=== PATIENT | female | born 1945 | race Caucasian/White ===

== ENCOUNTER 2016-11-19 23:43 | Emergency (ER) | payer OTHER ==
[~2016-11-19] VITALS: Ht 152.4 cm; Wt 77.1 kg
[~2016-11-19 23:43] MED LIST: ALL100T PO; GABA-497 PO; LOSA100T27 PO; OXYB5TAB62 PO; TRAM50TA2 PO
[2016-11-20 00:25] LABS: Basophils # (auto) 0 uL; Basophils % (auto) 0.8 % (0.0-2.0); Eosinophils # (auto) 0.2 uL; Eosinophils % (auto) 4.6 % (0.0-7.0); Hematocrit 34.3 % (36.0-46.0); Hemoglobin 11.7 g/dL (12.2-16.2); Lymphocytes % (auto) 40.5 % (10.0-50.0); Mean Corpuscular Hemoglobin 32.3 pg (28.0-32.0); Mean Corpuscular Volume 94.9 fL (80.0-100.0); Mean Platelet Volume 6.9 fL (7.4-10.4); Monocytes # (auto) 0.4 uL; Monocytes % (auto) 8.2 % (0.0-12.0); Neutrophils # (auto) 2.4 uL; Neutrophils % (auto) 45.9 % (37.0-80.0); Platelet Count (auto) 320 10^3/uL (140-450); Red Cell Distribution Width 16.3 % (11.6-16.0)
[2016-11-20 00:45] LABS: Albumin 3.8 g/dL (3.4-5.0); Calcium 8.7 mg/dL (8.5-10.1); Magnesium 2.5 mg/dL (1.6-2.6); Potassium 4.8 mmol/L (3.5-5.1)
[2016-11-20 00:50] LABS: Bilirubin, Total 0.2 mg/dL (0.2-1.0); Total Protein 7.5 g/dL (6.4-8.2)
[2016-11-20 04:30] VITALS: BP 132/76
[2016-11-20 06:11] LABS: Urine Bilirubin Negative (Negative); Urine Blood Negative /uL (Negative); Urine Color Yellow (Yellow); Urine Glucose Normal (Normal); Urine Ketone Negative (Negative); Urine Nitrite Negative (Negative); Urine RBC 2 /hpf (0 - 4); Urine Squamous Epithelial Cell FEW /hpf (<5); Urine Urobilinogen Normal (Negative)
== END 2016-11-20 03:37 | disposition home or self-care (01) ==
LOC: EDBD 23:43 → ER 23:49
DX: S52.501A Unspecified fracture of the lower end of right radius, initial encounter for closed fracture (principal); I12.9 Hypertensive chronic kidney disease with stage 1 through stage 4 chronic kidney disease, or unspecified chronic kidney disease; N18.9 Chronic kidney disease, unspecified; M10.9 Gout, unspecified; E78.5 Hyperlipidemia, unspecified; Z90.710 Acquired absence of both cervix and uterus; Z88.0 Allergy status to penicillin; Z88.2 Allergy status to sulfonamides; W19.XXXA Unspecified fall, initial encounter; Y93.89 Activity, other specified; Y99.8 Other external cause status; Y92.89 Other specified places as the place of occurrence of the external cause
CPT/HCPCS: 29125; 36415; 73130; 80053; 81001; 83735; 84484; 85025; 93005

== ENCOUNTER 2017-12-20 06:39 | Inpatient (IN) | payer OTHER ==
[~2017-12-20] VITALS: Ht 157.5 cm; Wt 83.2 kg
[~2017-12-20 06:39] MED LIST changes: -GABA-497 PO; +GABA300C10 PO; +LEVO500T21 PO; +LOSA-49 PO; -LOSA100T27 PO; +OXYB5TAB24 PO; -OXYB5TAB62 PO
[2017-12-20] MEDS ORDERED: SODIUM CHLORIDE 0.9% 500 ML IVB ONE (07:04)
[2017-12-20] MEDS ORDERED: PANTOPRAZOLE 40 MG/10 ML VIAL IV STA (07:04)
[2017-12-20] MEDS ORDERED: ONDANSETRON HCL 4 MG/2 ML VIAL IV ONE (07:15)
[2017-12-20] MEDS ORDERED: MORPHINE SULFATE 4 MG/ML SYR/VIAL IV ONE (07:15)
[2017-12-20 07:34] LABS: Basophils # (auto) 0 uL; Basophils % (auto) 0.4 % (0.0-2.0); Eosinophils # (auto) 0 uL; Hematocrit 36.9 % (36.0-46.0); Hemoglobin 12.3 g/dL (12.2-16.2); Lymphocytes # (auto) 0.6 uL; Lymphocytes % (auto) 9.8 % (10.0-50.0); Mean Corpuscular Hemoglobin 31.4 pg (28.0-32.0); Mean Corpuscular Hgb Conc. 33.4 g/dL (32.0-36.0); Mean Corpuscular Volume 94.1 fL (80.0-100.0); Monocytes # (auto) 0.3 uL; Monocytes % (auto) 4.3 % (0.0-12.0); Neutrophils # (auto) 5.6 uL; Neutrophils % (auto) 85.5 % (37.0-80.0); Platelet Count (auto) 271 10^3/uL (140-450); Red Blood Cells 3.92 10^6/uL (4.0-5.20); Red Cell Distribution Width 16.2 % (11.8-14.3); White Blood Cell 6.6 10^3/uL (4.4-10.8)
[2017-12-20 07:57] LABS: Albumin 4.1 g/dL (3.4-5.0); BUN/Creatinine Ratio 24.1; Calcium 9.5 mg/dL (8.5-10.1); Potassium 4.2 mmol/L (3.5-5.1); Total Protein 7.7 g/dL (6.4-8.2)
[2017-12-20] MEDS ORDERED: HYDROmorphone HCL 2 MG/ML VL IV ONE (08:45)
[2017-12-20] MEDS ORDERED: IOHEXOL 300 MG/ML 100ML BOTTLE IJ ONE (08:54)
[2017-12-20] MEDS ORDERED: GASTROGRAFIN 30 ML SOL ONE (09:01)
[2017-12-20] MEDS ORDERED: NITROGLYCERIN 0.4 MG SL TAB SL PRN (10:00)
[2017-12-20] MEDS ORDERED: MORPHINE SULFATE 4 MG/ML SYR/VIAL IV PRN (10:00)
[2017-12-20] MEDS ORDERED: PANTOPRAZOLE 40 MG/10 ML VIAL IV ONE (10:00)
[2017-12-20] MEDS: PANTOPRAZOLE 40 MG/10 ML VIAL IV SCH (10:00)
[2017-12-20] MEDS ORDERED: LEVOFLOXACIN 500MG 100 ML IV ONE (10:00)
[2017-12-20] MEDS ORDERED: DEXTROSE (50%) 50ML SYRG IV PRN (10:00)
[2017-12-20] MEDS ORDERED: LEVOFLOXACIN 500MG 100 ML IV SCH (10:00)
[2017-12-20 10:51] LABS: Urine Bacteria FEW /hpf (None Seen); Urine Blood Negative /uL (Negative); Urine WBC 3 /hpf (0 - 5)
[2017-12-20] MEDS: SODIUM CHLORIDE 0.9% 1,000 ML IV SCH ×3 (11:08→23:36)
[2017-12-20] MEDS: ACCU-CHEK COMFORT CURVE STRIP VI SCH ×3 (12:48→20:00)
[2017-12-20] MEDS: InsuLIN REG 1unit/0.01ml Soln (100units/ml) SC SCH ×3 (12:50→20:00)
[2017-12-20] MEDS: metroNIDAZOLE 500MG/100ML 100 ML IV SCH ×2 (13:48→21:55)
[2017-12-20] MEDS: ONDANSETRON HCL 4 MG/2 ML VIAL IV PRN (13:49)
[2017-12-20] MEDS: MORPHINE SULFATE 4 MG/ML SYR/VIAL IV PRN ×2 (13:51→16:51)
[2017-12-20 14:17] LABS: Hematocrit 36.2 % (36.0-46.0); Hemoglobin 12.2 g/dL (12.2-16.2)
[2017-12-20] MEDS ORDERED: CLON0.2T (16:26)
[2017-12-20] MEDS ORDERED: SERT-275 (16:26)
[2017-12-20 16:30] LABS: INR 0.96 (0.9-1.15); Partial Thromboplastin Time 23.1 sec (23.78-33.04); Prothrombin Time 10.3 sec (9.27-12.13)
[2017-12-20 21:23] LABS: Hematocrit 35.1 % (36.0-46.0); Hemoglobin 11.6 g/dL (12.2-16.2)
[2017-12-21 00:10] VITALS: BP 156/77
[2017-12-21 00:30] VITALS: BP 156/77
[2017-12-21] MEDS: ACCU-CHEK COMFORT CURVE STRIP VI SCH ×6 (00:49→19:51)
[2017-12-21] MEDS: InsuLIN REG 1unit/0.01ml Soln (100units/ml) SC SCH ×6 (00:49→19:51)
[2017-12-21] MEDS: LORazepam 2MG/ML-1ML VIAL IV PRN ×2 (00:51→16:55)
[2017-12-21] MEDS: MORPHINE SULFATE 4 MG/ML SYR/VIAL IV PRN ×5 (00:56→22:32)
[2017-12-21] MEDS ORDERED: TRAM50TA2 PO (01:31)
[2017-12-21] MEDS ORDERED: GABA300C10 PO (01:31)
[2017-12-21] MEDS ORDERED: DIPH25CA66 PO (01:31)
[2017-12-21 04:30] VITALS: BP 131/73
[2017-12-21] MEDS: SODIUM CHLORIDE 0.9% 1,000 ML IV SCH ×3 (05:00→19:28)
[2017-12-21 05:19] LABS: Basophils # (auto) 0 uL; Basophils % (auto) 0.1 % (0.0-2.0); Eosinophils # (auto) 0 uL; Eosinophils % (auto) 0.1 % (0.0-7.0); Hematocrit 33.5 % (36.0-46.0); Hemoglobin 11.2 g/dL (12.2-16.2); Lymphocytes # (auto) 0.8 uL; Lymphocytes % (auto) 10.7 % (10.0-50.0); Mean Corpuscular Hemoglobin 32.3 pg (28.0-32.0); Mean Corpuscular Hgb Conc. 33.5 g/dL (32.0-36.0); Mean Corpuscular Volume 96.4 fL (80.0-100.0); Monocytes # (auto) 0.6 uL; Neutrophils # (auto) 5.8 uL; Neutrophils % (auto) 81.1 % (37.0-80.0); Nucleated Red Blood Cells % 0.1 %; Platelet Count (auto) 155 10^3/uL (140-450); Red Blood Cells 3.47 10^6/uL (4.0-5.20); Red Cell Distribution Width 16.9 % (11.8-14.3); White Blood Cell 7.2 10^3/uL (4.4-10.8)
[2017-12-21 05:33] LABS: INR 1.01 (0.9-1.15); Partial Thromboplastin Time 24.5 sec (23.78-33.04); Prothrombin Time 10.8 sec (9.27-12.13)
[2017-12-21 05:44] LABS: Albumin 3.2 g/dL (3.4-5.0); BUN/Creatinine Ratio 21.1; Bilirubin, Total 1.2 mg/dL (0.2-1.0); Potassium 5.1 mmol/L (3.5-5.1); Total Protein 6.1 g/dL (6.4-8.2)
[2017-12-21] MEDS: metroNIDAZOLE 500MG/100ML 100 ML IV SCH ×3 (06:49→21:48)
[2017-12-21] MEDS: LEVOFLOXACIN 250MG 50 ML IV SCH (10:32)
[2017-12-21] MEDS: PANTOPRAZOLE 40 MG/10 ML VIAL IV SCH (10:32)
[2017-12-21] MEDS ORDERED: FUROSEMIDE 40 MG/4 ML VIAL IV ONE (11:30)
[2017-12-21 12:00] VITALS: BP 142/78
[2017-12-21 15:51] VITALS: BP 138/63
[2017-12-21] MEDS ORDERED: ACETAMINOPHEN 325 MG TAB PO PRN (16:30)
[2017-12-21 19:49] VITALS: BP 142/88
[2017-12-22] VITALS: BP 135/66
[2017-12-22] MEDS: ACCU-CHEK COMFORT CURVE STRIP VI SCH ×5 (00:17→18:05)
[2017-12-22] MEDS: SODIUM CHLORIDE 0.9% 1,000 ML IV SCH ×2 (02:53→08:34)
[2017-12-22] MEDS: MORPHINE SULFATE 4 MG/ML SYR/VIAL IV PRN ×6 (02:53→21:00)
[2017-12-22 04:00] VITALS: BP 155/100
[2017-12-22] MEDS: InsuLIN REG 1unit/0.01ml Soln (100units/ml) SC SCH ×5 (04:00→18:00)
[2017-12-22] MEDS: metroNIDAZOLE 500MG/100ML 100 ML IV SCH ×3 (05:36→21:35)
[2017-12-22 08:00] VITALS: BP 167/73
[2017-12-22] MEDS: LORazepam 2MG/ML-1ML VIAL IV PRN ×2 (09:28→21:59)
[2017-12-22] MEDS: PANTOPRAZOLE 40 MG/10 ML VIAL IV SCH (09:29)
[2017-12-22] MEDS: LEVOFLOXACIN 250MG 50 ML IV SCH (09:29)
[2017-12-22 10:17] LABS: Basophils # (auto) 0 uL; Basophils % (auto) 0.4 % (0.0-2.0); Eosinophils # (auto) 0 uL; Hematocrit 38.3 % (36.0-46.0); Hemoglobin 12.4 g/dL (12.2-16.2); Mean Corpuscular Hgb Conc. 32.2 g/dL (32.0-36.0); Mean Corpuscular Volume 96.1 fL (80.0-100.0); Monocytes # (auto) 0.9 uL; Monocytes % (auto) 10.2 % (0.0-12.0); Neutrophils # (auto) 7.3 uL; Neutrophils % (auto) 78.4 % (37.0-80.0); Nucleated Red Blood Cells % 0.2 %; Red Blood Cells 3.99 10^6/uL (4.0-5.20); Red Cell Distribution Width 17.8 % (11.8-14.3); White Blood Cell 9.3 10^3/uL (4.4-10.8)
[2017-12-22 10:24] LABS: Alanine Aminotransferase 17 U/L (13-56); Albumin 2.9 g/dL (3.4-5.0); Anion Gap 16 (5-15); Aspartate Aminotransferase 60 U/L (15-37); BUN/Creatinine Ratio 19.1; Blood Urea Nitrogen 70 mg/dL (7-18); Calcium 6.6 mg/dL (8.5-10.1); Carbon Dioxide 16 mmol/L (21-32); Chloride 111 mmol/L (98-107); GFR African American 16 mL/min; GFR Non-African American 13 mL/min; Glucose 106 mg/dL (74-106); Potassium 4.7 mmol/L (3.5-5.1); Sodium 143 mmol/L (136-145)
[2017-12-22 10:26] LABS: Alkaline Phosphatase 101 U/L (45-117); Bilirubin, Total 1.3 mg/dL (0.2-1.0); Total Protein 6.1 g/dL (6.4-8.2)
[2017-12-22] MEDS ORDERED: DIAZEPAM 5 MG/ML 2ML SYRG IV ONE (11:00)
[2017-12-22] MEDS ORDERED: LORazepam 2MG/ML-1ML VIAL IV PRN (11:00)
[2017-12-22] MEDS ORDERED: CALCIUM CHL 100MG/ML 1,000 MG in D5W 5% 100 ML IV ONE (11:15)
[2017-12-22 11:19] LABS: Platelet Count (auto) 76 10^3/uL (140-450)
[2017-12-22] MEDS ORDERED: LORazepam 2MG/ML-1ML VIAL IV ONE (12:00)
[2017-12-22 12:08] VITALS: BP 103/69
[2017-12-22 13:08] LABS: Magnesium 1.5 mg/dL (1.6-2.6)
[2017-12-22] MEDS: SODIUM BICARBONATE 50ML VIAL 75 ML in SOD CHL 0.45% 1,000 ML IV SCH (15:58)
[2017-12-22 16:00] VITALS: BP 150/109
[2017-12-22 17:01] LABS: Calcium 7.4 mg/dL (8.5-10.1)
[2017-12-22 17:05] LABS: BUN/Creatinine Ratio 19.9; Potassium 4.4 mmol/L (3.5-5.1)
[2017-12-22 20:00] VITALS: BP 160/83
[2017-12-22] MEDS: hydrALAZINE HCL 20 MG/ML VL IV PRN (20:07)
[2017-12-22] MEDS: METOPROLOL TARTRATE 1MG/1ML-5ML VIAL IV PRN (21:56)
[2017-12-23] VITALS: BP 135/69
[2017-12-23] MEDS: MORPHINE SULFATE 4 MG/ML SYR/VIAL IV PRN ×4 (03:10→22:08)
[2017-12-23 03:59] VITALS: BP 109/54
[2017-12-23] MEDS: ACCU-CHEK COMFORT CURVE STRIP VI SCH ×4 (05:21→18:07)
[2017-12-23] MEDS: SODIUM BICARBONATE 50ML VIAL 75 ML in SOD CHL 0.45% 1,000 ML IV SCH ×3 (05:21→17:51)
[2017-12-23] MEDS: metroNIDAZOLE 500MG/100ML 100 ML IV SCH ×3 (05:21→21:56)
[2017-12-23] MEDS: InsuLIN REG 1unit/0.01ml Soln (100units/ml) SC SCH ×4 (05:23→18:00)
[2017-12-23 05:28] LABS: Basophils # (auto) 0 uL; Basophils % (auto) 0.3 % (0.0-2.0); Eosinophils # (auto) 0 uL; Eosinophils % (auto) 0.1 % (0.0-7.0); Hematocrit 27.4 % (36.0-46.0); Hemoglobin 9.5 g/dL (12.2-16.2); Lymphocytes # (auto) 0.6 uL; Lymphocytes % (auto) 9.3 % (10.0-50.0); Mean Corpuscular Hemoglobin 32.9 pg (28.0-32.0); Mean Corpuscular Hgb Conc. 34.7 g/dL (32.0-36.0); Mean Corpuscular Volume 94.6 fL (80.0-100.0); Monocytes # (auto) 0.8 uL; Monocytes % (auto) 11.4 % (0.0-12.0); Neutrophils # (auto) 5.3 uL; Neutrophils % (auto) 78.9 % (37.0-80.0); Platelet Count (auto) 90 10^3/uL (140-450); Red Cell Distribution Width 18.5 % (11.8-14.3); White Blood Cell 6.7 10^3/uL (4.4-10.8)
[2017-12-23 05:55] LABS: Albumin 2.4 g/dL (3.4-5.0); BUN/Creatinine Ratio 23.2; Bilirubin, Total 0.8 mg/dL (0.2-1.0); Calcium 6.9 mg/dL (8.5-10.1); Magnesium 1.5 mg/dL (1.6-2.6); Phosphorus 3.3 mg/dL (2.5-4.90); Total Protein 5.1 g/dL (6.4-8.2)
[2017-12-23 08:30] VITALS: BP 120/64
[2017-12-23 09:01] VITALS: BP 120/64
[2017-12-23] MEDS ORDERED: MAGNESIUM SULFATE 1GM/100ML 100 ML IV ONE (09:23)
[2017-12-23] MEDS: PANTOPRAZOLE 40 MG/10 ML VIAL IV SCH (09:40)
[2017-12-23] MEDS: MAGNESIUM SULFATE 1GM/100ML 100 ML IV SCH ×2 (09:43→12:02)
[2017-12-23 11:45] VITALS: BP 153/68
[2017-12-23] MEDS: LORazepam 2MG/ML-1ML VIAL IV PRN (12:00)
[2017-12-23] MEDS: HEPARIN SODIUM (PORCINE) 5000 UNITS/ML 1ML VIAL SC SCH ×2 (13:37→21:56)
[2017-12-23] MEDS ORDERED: LIDOCAINE 1% (LOCAL ANESTH.) PF 5ml SDV ONE (16:16)
[2017-12-23] MEDS ORDERED: SERTRALINE HCL 50 MG TAB PO ONE (16:45)
[2017-12-23 18:58] LABS: Creatinine, Urine 94 mg/dL (30.0-125.0); Sodium Urine 25 mmol/L (40-220)
[2017-12-23 20:00] VITALS: BP 152/101
[2017-12-23] MEDS: SERTRALINE HCL 50 MG TAB PO SCH (21:55)
[2017-12-24] VITALS (7 sets, daily range): BP systolic 117–160; BP diastolic 66–99
[2017-12-24] MEDS: ACCU-CHEK COMFORT CURVE STRIP VI SCH ×5 (00:27→23:33)
[2017-12-24] MEDS: SODIUM BICARBONATE 50ML VIAL 75 ML in SOD CHL 0.45% 1,000 ML IV SCH ×3 (02:19→19:39)
[2017-12-24] MEDS: MORPHINE SULFATE 4 MG/ML SYR/VIAL IV PRN ×3 (02:23→20:03)
[2017-12-24] MEDS: METOPROLOL TARTRATE 1MG/1ML-5ML VIAL IV PRN ×3 (03:30→20:28)
[2017-12-24 05:05] LABS: Basophils # (auto) 0 uL; Basophils % (auto) 0.3 % (0.0-2.0); Eosinophils # (auto) 0 uL; Eosinophils % (auto) 0.5 % (0.0-7.0); Hemoglobin 9.5 g/dL (12.2-16.2); Lymphocytes % (auto) 12.5 % (10.0-50.0); Mean Corpuscular Hemoglobin 31.6 pg (28.0-32.0); Mean Corpuscular Volume 93.1 fL (80.0-100.0); Monocytes # (auto) 1.1 uL; Monocytes % (auto) 14.2 % (0.0-12.0); Neutrophils # (auto) 5.6 uL; Neutrophils % (auto) 72.5 % (37.0-80.0); Nucleated Red Blood Cells % 0.2 %; Platelet Count (auto) 123 10^3/uL (140-450); Red Cell Distribution Width 18.2 % (11.8-14.3); White Blood Cell 7.8 10^3/uL (4.4-10.8)
[2017-12-24 05:28] LABS: Albumin 2.4 g/dL (3.4-5.0); BUN/Creatinine Ratio 27.4; Bilirubin, Total 0.6 mg/dL (0.2-1.0); Calcium 7.2 mg/dL (8.5-10.1); Magnesium 2.1 mg/dL (1.6-2.6); Phosphorus 3.1 mg/dL (2.5-4.90); Potassium 3.4 mmol/L (3.5-5.1); Total Protein 5.3 g/dL (6.4-8.2)
[2017-12-24] MEDS: metroNIDAZOLE 500MG/100ML 100 ML IV SCH ×3 (05:44→22:20)
[2017-12-24] MEDS: LORazepam 2MG/ML-1ML VIAL IV PRN ×2 (05:44→15:25)
[2017-12-24] MEDS: HEPARIN SODIUM (PORCINE) 5000 UNITS/ML 1ML VIAL SC SCH ×3 (05:49→22:17)
[2017-12-24] MEDS: InsuLIN REG 1unit/0.01ml Soln (100units/ml) SC SCH ×5 (06:00→23:33)
[2017-12-24] MEDS: hydrALAZINE HCL 20 MG/ML VL IV PRN (08:43)
[2017-12-24] MEDS: SERTRALINE HCL 50 MG TAB PO SCH ×2 (10:00→22:20)
[2017-12-24] MEDS: PANTOPRAZOLE 40 MG/10 ML VIAL IV SCH (10:00)
[2017-12-24] MEDS ORDERED: LEVOFLOXACIN 250MG 50 ML IV SCH (10:00)
[2017-12-24] MEDS: POTASSIUM CHL 20MEQ/100ML 100 ML IV SCH ×2 (11:15→14:53)
[2017-12-24] MEDS ORDERED: ALPRAZolam 0.5 MG TAB PO PRN (14:00)
[2017-12-24] MEDS: ONDANSETRON HCL 4 MG/2 ML VIAL IV PRN (15:25)
[2017-12-24] MEDS ORDERED: SODIUM CHLORIDE 0.9% 1,000 ML IV ONE (20:30)
[2017-12-24] MEDS ORDERED: METOPROLOL TARTRATE 1MG/1ML-5ML VIAL IV ONE (23:00)
[2017-12-25] MEDS: MORPHINE SULFATE 4 MG/ML SYR/VIAL IV PRN ×4 (02:30→22:02)
[2017-12-25] MEDS: METOPROLOL TARTRATE 1MG/1ML-5ML VIAL IV PRN (02:30)
[2017-12-25] MEDS: LORazepam 2MG/ML-1ML VIAL IV PRN (03:10)
[2017-12-25] MEDS: hydrALAZINE HCL 20 MG/ML VL IV PRN (03:18)
[2017-12-25] MEDS: SODIUM BICARBONATE 50ML VIAL 75 ML in SOD CHL 0.45% 1,000 ML IV SCH ×3 (04:15→21:59)
[2017-12-25 04:26] VITALS: BP 160/104
[2017-12-25] MEDS: HEPARIN SODIUM (PORCINE) 5000 UNITS/ML 1ML VIAL SC SCH ×3 (05:47→22:01)
[2017-12-25] MEDS: metroNIDAZOLE 500MG/100ML 100 ML IV SCH ×3 (05:47→22:00)
[2017-12-25] MEDS: InsuLIN REG 1unit/0.01ml Soln (100units/ml) SC SCH ×3 (06:00→17:50)
[2017-12-25] MEDS: ACCU-CHEK COMFORT CURVE STRIP VI SCH ×3 (06:02→17:50)
[2017-12-25] MEDS ORDERED: METOPROLOL TARTRATE 1MG/1ML-5ML VIAL IV ONE ×2 (06:23→06:30)
[2017-12-25] MEDS ORDERED: SODIUM CHLORIDE 0.9% 1,000 ML IV ONE (06:30)
[2017-12-25 08:56] VITALS: BP 104/47
[2017-12-25] MEDS: DIGOXIN (250MCG/ML) 2 ML AMPULE IV SCH ×2 (10:07→18:34)
[2017-12-25] MEDS: METOPROLOL TARTRATE 1MG/1ML-5ML VIAL IV SCH ×4 (10:10→22:01)
[2017-12-25 10:12] LABS: Phosphorus 3.1 mg/dL (2.5-4.90)
[2017-12-25] MEDS: SERTRALINE HCL 50 MG TAB PO SCH ×2 (10:14→22:01)
[2017-12-25] MEDS: PANTOPRAZOLE 40 MG/10 ML VIAL IV SCH (10:14)
[2017-12-25 10:18] LABS: Albumin 2.3 g/dL (3.4-5.0); BUN/Creatinine Ratio 33.8; Bilirubin, Total 0.6 mg/dL (0.2-1.0); Calcium 7.3 mg/dL (8.5-10.1); Potassium 3.6 mmol/L (3.5-5.1); Total Protein 5.3 g/dL (6.4-8.2)
[2017-12-25 13:00] VITALS: BP 136/79
[2017-12-25 13:27] LABS: Amylase 143 U/L (25-115); Lipase 637 U/L (73-393)
[2017-12-25 17:00] VITALS: BP 138/77
[2017-12-25] MEDS ORDERED: DIGOXIN (250MCG/ML) 2 ML AMPULE ONE (18:21)
[2017-12-25] MEDS ORDERED: HEPARIN SODIUM (PORCINE) 5000 UNITS/ML 1ML VIAL ONE (21:53)
[2017-12-25 22:32] VITALS: BP 114/62
[2017-12-26] MEDS: METOPROLOL TARTRATE 1MG/1ML-5ML VIAL IV SCH ×6 (02:00→21:45)
[2017-12-26] MEDS: MORPHINE SULFATE 4 MG/ML SYR/VIAL IV PRN ×3 (02:00→17:39)
[2017-12-26 05:22] VITALS: BP 165/89
[2017-12-26] MEDS: InsuLIN REG 1unit/0.01ml Soln (100units/ml) SC SCH ×4 (05:25→17:40)
[2017-12-26] MEDS: ACCU-CHEK COMFORT CURVE STRIP VI SCH ×4 (05:25→17:41)
[2017-12-26] MEDS ORDERED: HEPARIN SODIUM (PORCINE) 5000 UNITS/ML 1ML VIAL ONE (05:28)
[2017-12-26] MEDS: HEPARIN SODIUM (PORCINE) 5000 UNITS/ML 1ML VIAL SC SCH ×3 (05:30→21:43)
[2017-12-26] MEDS: SODIUM BICARBONATE 50ML VIAL 75 ML in SOD CHL 0.45% 1,000 ML IV SCH ×2 (05:30→16:20)
[2017-12-26] MEDS: metroNIDAZOLE 500MG/100ML 100 ML IV SCH ×2 (05:30→14:17)
[2017-12-26 06:34] LABS: Mean Corpuscular Hgb Conc. 33.4 g/dL (32.0-36.0); Platelet Count (auto) 264 10^3/uL (140-450); Red Blood Cells 3.22 10^6/uL (4.0-5.20); Red Cell Distribution Width 18.5 % (11.8-14.3); White Blood Cell 9.5 10^3/uL (4.4-10.8)
[2017-12-26 06:55] LABS: Albumin 2.2 g/dL (3.4-5.0); BUN/Creatinine Ratio 37.5; Basophils % (manual) 0 (0.0-2.0); Bilirubin, Total 0.5 mg/dL (0.2-1.0); Blast Cells 0; Calcium 7.9 mg/dL (8.5-10.1); Eosinophils % (manual) 0 (0-7); Metamyelocytes % 0; Myelocytes % 0; Potassium 3.5 mmol/L (3.5-5.1); Promyelocytes % 0; Reactive Lymphocytes 0; Total Protein 5.2 g/dL (6.4-8.2)
[2017-12-26 06:59] LABS: Magnesium 1.8 mg/dL (1.6-2.6); Phosphorus 3.3 mg/dL (2.5-4.90)
[2017-12-26 08:28] LABS: Band Neutrophils % (manual) 9; Lymphocytes % (manual) 9 (10.0-50.0); Monocytes % (manual) 12 (0-12)
[2017-12-26 09:27] VITALS: BP 160/90
[2017-12-26] MEDS: SERTRALINE HCL 50 MG TAB PO SCH ×2 (09:50→21:38)
[2017-12-26] MEDS: PANTOPRAZOLE 40 MG/10 ML VIAL IV SCH (09:50)
[2017-12-26] MEDS ORDERED: LEVOFLOXACIN 250MG 50 ML IV SCH (10:00)
[2017-12-26 12:27] VITALS: BP 139/84
[2017-12-26] MEDS ORDERED: AMIODARONE HCL 150 MG in D5W 5% 100 ML IV ONE (13:45)
[2017-12-26] MEDS ORDERED: FUROSEMIDE 40 MG/4 ML VIAL IV ONE (15:15)
[2017-12-26] MEDS ORDERED: MORPHINE SULFATE 4 MG/ML SYR/VIAL IV PRN ×2 (16:15)
[2017-12-26 16:47] VITALS: BP 151/68
[2017-12-26 22:00] VITALS: BP 155/86
[2017-12-27] VITALS (38 sets, daily range): BP systolic 115–189; BP diastolic 64–103
[2017-12-27] MEDS ORDERED: AMIODARONE HCL 900 MG IV ONE (01:39)
[2017-12-27] MEDS ORDERED: AMIODARONE HCL 900 MG in DEXTROSE 500 ML IV SCH ×2 (02:21→08:21)
[2017-12-27] MEDS: METOPROLOL TARTRATE 1MG/1ML-5ML VIAL IV SCH ×3 (02:28→10:03)
[2017-12-27] MEDS: MORPHINE SULFATE 4 MG/ML SYR/VIAL IV PRN ×5 (03:01→22:02)
[2017-12-27] MEDS: SODIUM BICARBONATE 50ML VIAL 75 ML in SOD CHL 0.45% 1,000 ML IV SCH ×2 (05:35→19:55)
[2017-12-27] MEDS: HEPARIN SODIUM (PORCINE) 5000 UNITS/ML 1ML VIAL SC SCH ×3 (05:46→21:55)
[2017-12-27] MEDS: ACCU-CHEK COMFORT CURVE STRIP VI SCH ×4 (05:47→17:48)
[2017-12-27] MEDS: InsuLIN REG 1unit/0.01ml Soln (100units/ml) SC SCH ×4 (05:47→17:48)
[2017-12-27 06:37] LABS: Albumin 1.8 g/dL (3.4-5.0); BUN/Creatinine Ratio 35.7; Calcium 7.5 mg/dL (8.5-10.1); Potassium 3.5 mmol/L (3.5-5.1)
[2017-12-27 06:40] LABS: Bilirubin, Total 0.4 mg/dL (0.2-1.0); Total Protein 4.7 g/dL (6.4-8.2)
[2017-12-27 07:04] LABS: Amylase 94 U/L (25-115); Cholesterol 74 mg/dL (< 200); HDL Cholesterol 14 mg/dL (40-59); LDL Cholesterol 46 mg/dL (< 100); Lipase 432 U/L (73-393); Triglycerides 78 mg/dL (< 150)
[2017-12-27] MEDS: SERTRALINE HCL 50 MG TAB PO SCH ×2 (10:03→21:54)
[2017-12-27] MEDS: PANTOPRAZOLE 40 MG/10 ML VIAL IV SCH (10:03)
[2017-12-27] MEDS ORDERED: FUROSEMIDE 40 MG/4 ML VIAL IV ONE (13:15)
[2017-12-27] MEDS ORDERED: POTASSIUM CHL 20 Meq TABLET PO ONE (13:15)
[2017-12-27] MEDS ORDERED: AMIODARONE HCL 200 MG TAB PO ONE (13:15)
[2017-12-27] MEDS: FAMOTIDINE 20 MG TAB PO SCH (21:54)
[2017-12-27] MEDS: AMIODARONE HCL 200 MG TAB PO SCH (21:54)
[2017-12-28] VITALS (16 sets, daily range): BP systolic 129–188; BP diastolic 69–96
[2017-12-28] MEDS: MORPHINE SULFATE 4 MG/ML SYR/VIAL IV PRN ×3 (03:30→16:20)
[2017-12-28] MEDS: ACCU-CHEK COMFORT CURVE STRIP VI SCH ×4 (06:00→18:06)
[2017-12-28] MEDS: HEPARIN SODIUM (PORCINE) 5000 UNITS/ML 1ML VIAL SC SCH ×3 (06:00→22:36)
[2017-12-28] MEDS: InsuLIN REG 1unit/0.01ml Soln (100units/ml) SC SCH ×4 (06:00→18:00)
[2017-12-28] MEDS ORDERED: DILTIAZEM HCL 25 MG/5 ML VIAL IV PRN (08:45)
[2017-12-28] MEDS ORDERED: AMIODARONE HCL 900 MG in DEXTROSE 500 ML IV SCH (08:45)
[2017-12-28] MEDS ORDERED: DIGOXIN (250MCG/ML) 2 ML AMPULE IV ONE (08:45)
[2017-12-28] MEDS: FAMOTIDINE 20 MG TAB PO SCH ×2 (09:39→22:35)
[2017-12-28] MEDS: METOPROLOL SUCCINATE XL 50 MG TAB PO SCH (09:40)
[2017-12-28] MEDS: AMIODARONE HCL 200 MG TAB PO SCH ×2 (09:40→22:35)
[2017-12-28] MEDS: SERTRALINE HCL 50 MG TAB PO SCH ×2 (09:40→22:36)
[2017-12-28] MEDS ORDERED: METOPROLOL SUCCINATE XL 50 MG TAB PO SCH (10:00)
[2017-12-28] MEDS: LORazepam 2MG/ML-1ML VIAL IV PRN (10:07)
[2017-12-28] MEDS: SODIUM BICARBONATE 50ML VIAL 75 ML in SOD CHL 0.45% 1,000 ML IV SCH (10:15)
[2017-12-28 13:30] LABS: Mean Corpuscular Volume 91.8 fL (80.0-100.0); Red Blood Cells 3.21 10^6/uL (4.0-5.20)
[2017-12-28 13:32] LABS: Hematocrit 29.4 % (36.0-46.0); Hemoglobin 9.9 g/dL (12.2-16.2); Mean Corpuscular Hemoglobin 30.8 pg (28.0-32.0); Mean Corpuscular Hgb Conc. 33.5 g/dL (32.0-36.0); Platelet Count (auto) 500 10^3/uL (140-450); Red Cell Distribution Width 18.5 % (11.8-14.3); White Blood Cell 17.3 10^3/uL (4.4-10.8)
[2017-12-28 13:36] LABS: Albumin 1.9 g/dL (3.4-5.0); Basophils % (manual) 0 (0.0-2.0); Blast Cells 0; Calcium 7.7 mg/dL (8.5-10.1); Metamyelocytes % 0; Myelocytes % 0; Potassium 4.2 mmol/L (3.5-5.1); Promyelocytes % 0; Reactive Lymphocytes 0
[2017-12-28 13:38] LABS: BUN/Creatinine Ratio 33.6
[2017-12-28 13:40] LABS: Bilirubin, Total 0.3 mg/dL (0.2-1.0); Total Protein 5.3 g/dL (6.4-8.2)
[2017-12-28 14:23] LABS: Band Neutrophils % (manual) 11; Eosinophils % (manual) 1 (0-7); Lymphocytes % (manual) 2 (10.0-50.0); Monocytes % (manual) 6 (0-12)
[2017-12-28] MEDS: AMIODARONE HCL 900 MG in DEXTROSE 500 ML IV SCH (14:45)
[2017-12-28] MEDS ORDERED: GASTROGRAFIN 30 ML SOL ONE (15:06)
[2017-12-29] VITALS (29 sets, daily range): BP systolic 129–202; BP diastolic 57–107
[2017-12-29] MEDS: InsuLIN REG 1unit/0.01ml Soln (100units/ml) SC SCH ×4 (01:00→17:33)
[2017-12-29] MEDS: ACCU-CHEK COMFORT CURVE STRIP VI SCH ×4 (01:00→17:33)
[2017-12-29] MEDS: MORPHINE SULFATE 4 MG/ML SYR/VIAL IV PRN ×3 (01:09→16:05)
[2017-12-29] MEDS: SODIUM BICARBONATE 50ML VIAL 75 ML in SOD CHL 0.45% 1,000 ML IV SCH (03:00)
[2017-12-29] MEDS: hydrALAZINE HCL 20 MG/ML VL IV PRN (03:17)
[2017-12-29] MEDS: LORazepam 2MG/ML-1ML VIAL IV PRN (03:47)
[2017-12-29 04:10] LABS: Hematocrit 26.6 % (36.0-46.0); Hemoglobin 8.9 g/dL (12.2-16.2); Mean Corpuscular Hemoglobin 30.7 pg (28.0-32.0); Mean Corpuscular Hgb Conc. 33.2 g/dL (32.0-36.0); Mean Corpuscular Volume 92.3 fL (80.0-100.0); Platelet Count (auto) 442 10^3/uL (140-450); Red Blood Cells 2.88 10^6/uL (4.0-5.20); Red Cell Distribution Width 17.9 % (11.8-14.3); White Blood Cell 16.5 10^3/uL (4.4-10.8)
[2017-12-29 04:16] LABS: Basophils % (manual) 0 (0.0-2.0); Blast Cells 0; Eosinophils % (manual) 0 (0-7); Promyelocytes % 0; Reactive Lymphocytes 0
[2017-12-29 04:24] LABS: Albumin 1.7 g/dL (3.4-5.0); Calcium 7.4 mg/dL (8.5-10.1); Potassium 3.9 mmol/L (3.5-5.1)
[2017-12-29 04:26] LABS: BUN/Creatinine Ratio 35.7
[2017-12-29 04:29] LABS: Bilirubin, Total 0.5 mg/dL (0.2-1.0); Total Protein 4.9 g/dL (6.4-8.2)
[2017-12-29 04:56] LABS: Band Neutrophils % (manual) 2; Lymphocytes % (manual) 2 (10.0-50.0); Metamyelocytes % 3; Monocytes % (manual) 6 (0-12); Myelocytes % 3
[2017-12-29] MEDS: HEPARIN SODIUM (PORCINE) 5000 UNITS/ML 1ML VIAL SC SCH ×2 (06:00→13:20)
[2017-12-29] MEDS: FAMOTIDINE 20 MG TAB PO SCH (10:02)
[2017-12-29] MEDS: AMIODARONE HCL 200 MG TAB PO SCH (10:02)
[2017-12-29] MEDS: METOPROLOL SUCCINATE XL 50 MG TAB PO SCH (10:03)
[2017-12-29] MEDS: SERTRALINE HCL 50 MG TAB PO SCH (10:03)
[2017-12-29] MEDS ORDERED: LACTULOSE 20Gm/30ML SOLN PO ONE (12:45)
[2017-12-29] MEDS ORDERED: FUROSEMIDE 40 MG/4 ML VIAL IV ONE (12:45)
[2017-12-29] MEDS: ALBUMIN 25% 100 ML IV SCH ×2 (13:13→16:47)
[2017-12-29] MEDS: AMIODARONE HCL 900 MG in DEXTROSE 500 ML IV SCH (16:05)
== END 2017-12-29 18:47 | disposition short-term general hospital (02) | DRG 438 ==
LOC: EDBD 06:39 → ER 06:42 → OVERFLOW 06:43 → DOU IN ICU 23:45 → TELE-WESTW 12-24 15:49 → ICU WEST 12-27 01:28
PROVIDERS: ADMIT Internal Medicine; ATTEND Internal Medicine
PROC: 02H633Z Insertion of Infusion Device into Right Atrium, Percutaneous Approach (ICD-10-PCS; principal; 2017-12-28)
DX: K85.10 Biliary acute pancreatitis without necrosis or infection (principal); N17.0 Acute kidney failure with tubular necrosis; J96.01 Acute respiratory failure with hypoxia; K80.00 Calculus of gallbladder with acute cholecystitis without obstruction; R18.8 Other ascites; E86.0 Dehydration; K29.80 Duodenitis without bleeding; E11.22 Type 2 diabetes mellitus with diabetic chronic kidney disease; E11.65 Type 2 diabetes mellitus with hyperglycemia; E87.6 Hypokalemia; D64.9 Anemia, unspecified; E11.42 Type 2 diabetes mellitus with diabetic polyneuropathy; M10.9 Gout, unspecified; I12.9 Hypertensive chronic kidney disease with stage 1 through stage 4 chronic kidney disease, or unspecified chronic kidney disease; E66.9 Obesity, unspecified; E78.5 Hyperlipidemia, unspecified; E83.42 Hypomagnesemia; F41.9 Anxiety disorder, unspecified; I48.0 Paroxysmal atrial fibrillation; K82.8 Other specified diseases of gallbladder; N18.3 Chronic kidney disease, stage 3 (moderate); N27.1 Small kidney, bilateral; Z80.0 Family history of malignant neoplasm of digestive organs; Z82.49 Family history of ischemic heart disease and other diseases of the circulatory system; Z90.710 Acquired absence of both cervix and uterus; Z98.49 Cataract extraction status, unspecified eye; Z79.899 Other long term (current) drug therapy; Z88.0 Allergy status to penicillin; Z88.8 Allergy status to other drugs, medicaments and biological substances; Z88.2 Allergy status to sulfonamides; Z68.33 Body mass index [BMI] 33.0-33.9, adult
CPT/HCPCS: 36415; 71045; 74176; 74181; 76705; 76775; 78226; 80048; 80053; 80061; 81001; 82150; 82570; 82962; 83036; 83690; 83735; 84100; 84300; 84484; 85007; 85014; 85018; 85025; 85027; 85045; 85610; 85730; 86850; 86900; 86901; 87081; 93005; 93306; 93971; 94761; 96361; 96374; 96375; 96376; 97110; C9113; J1815; J1956; J2405; J3480; J3490; J7060; P9047

== ENCOUNTER 2019-08-20 07:51 | Day surgery (SDC) | payer OTHER ==
[~2019-08-20] VITALS: Ht 152.4 cm; Wt 62.6 kg
[~2019-08-20 07:51] MED LIST changes: -ALL100T PO; +AMIO200T33 PO; +AMLO10TA13 PO; +ASPI-404 PO; +FURO40TA4 PO; -LEVO500T21 PO; +LEVO75TA6 PO; -LOSA-49 PO; +METO-159 PO; -OXYB5TAB24 PO; +SERT-275 PO
[2019-08-20] MEDS ORDERED: fentaNYL CITRATE 100 MCG/2 ML VL IV ONE (08:30)
[2019-08-20] MEDS ORDERED: diphenhdrAMINE HCL 50 MG/1 ML VL IV ONE (08:30)
[2019-08-20] MEDS ORDERED: LIDOCAINE VISCOUS 2% 15ML UD MT ONE (08:30)
[2019-08-20] MEDS ORDERED: MIDAZOLAM HCL 1MG/1ML-2 ML VIAL IV ONE (08:30)
== END 2019-08-20 10:39 | disposition home or self-care (01) ==
LOC: CATH 07:51
PROVIDERS: ATTEND Internal Medicine
DX: I50.9 Heart failure, unspecified (principal); E78.5 Hyperlipidemia, unspecified; J98.4 Other disorders of lung; I12.9 Hypertensive chronic kidney disease with stage 1 through stage 4 chronic kidney disease, or unspecified chronic kidney disease; N18.4 Chronic kidney disease, stage 4 (severe); Z88.2 Allergy status to sulfonamides; Z88.1 Allergy status to other antibiotic agents; Z98.890 Other specified postprocedural states; Z11.59 Encounter for screening for other viral diseases
CPT/HCPCS: 93312; J1200; J2250; J3010; J7030; U0003; 99152

== ENCOUNTER 2021-01-10 16:30 | Emergency (ER) | payer OTHER ==
[~2021-01-10] VITALS: Ht 152.4 cm; Wt 63.5 kg
[~2021-01-10 16:30] MED LIST changes: +AMLO-496 PO; -AMLO10TA13 PO; -ASPI-404 PO; +ASPI-543 PO; -SERT-275 PO; +SERT25TA14 PO
[2021-01-10 16:38] VITALS: BP 157/66
== END 2021-01-10 23:39 | disposition left against medical advice (07) ==
LOC: ER 16:30
DX: M54.2 Cervicalgia (principal); R07.81 Pleurodynia; R07.89 Other chest pain; Z53.21 Procedure and treatment not carried out due to patient leaving prior to being seen by health care provider; V49.59XA Passenger injured in collision with other motor vehicles in traffic accident, initial encounter; Y93.89 Activity, other specified; Y92.488 Other paved roadways as the place of occurrence of the external cause; Y99.8 Other external cause status
CPT/HCPCS: 71046; 72040

== ENCOUNTER 2021-04-12 18:52 | Inpatient (IN) | payer BC, OTHER ==
[~2021-04-12] VITALS: Ht 165.1 cm; Wt 68.0 kg
[2021-04-12] MEDS ORDERED: dilTIAZem 25 MG/5 ML VIAL IV ONE (19:30)
[2021-04-12 21:21] LABS: Basophils # (auto) 0.1 10 ^3/uL (0-0.2); Eosinophils # (auto) 0 10 ^3/uL (0-0.8); Hematocrit 33.1 % (36.0-46.0); Mean Corpuscular Hemoglobin 34.5 pg (28.0-32.0); Monocytes # (auto) 0.6 10 ^3/uL (0-1.3); Monocytes % (auto) 13.8 % (0.0-12.0); White Blood Cell 4.4 10^3/uL (4.4-10.8)
[2021-04-12 21:23] LABS: Basophils % (auto) 1.7 % (0.0-2.0); Eosinophils % (auto) 0.8 % (0.0-7.0); Lymphocytes # (auto) 0.8 10 ^3/uL (0.4-5.4); Lymphocytes % (auto) 18.7 % (10.0-50.0); Mean Corpuscular Hgb Conc. 33.3 g/dL (32.0-36.0); Mean Corpuscular Volume 103.4 fL (80.0-100.0); Neutrophils # (auto) 2.8 10 ^3/uL (1.6-8.6); Nucleated Red Blood Cells % 0.2 %; Red Cell Distribution Width 15.6 % (11.8-14.3)
[2021-04-12 21:41] LABS: Potassium 4.8 mmol/L (3.5-5.1)
[2021-04-12] MEDS ORDERED: ACETAMINOPHEN 325 MG TAB PO PRN (21:45)
[2021-04-12] MEDS ORDERED: MORPHINE SULFATE INJECTION 2 MG/ML SYRG IV PRN (21:45)
[2021-04-12] MEDS ORDERED: NITROGLYCERIN 0.4 MG SL TAB SL PRN (21:45)
[2021-04-12] MEDS ORDERED: ONDANSETRON HCL 4 MG/2 ML VIAL IV PRN (21:45)
[2021-04-12 21:54] LABS: Albumin 3.5 g/dL (3.4-5.0); BUN/Creatinine Ratio 25.5; Bilirubin, Total 0.9 mg/dL (0.2-1.0); Calcium 8.8 mg/dL (8.5-10.1); Magnesium 3.1 mg/dL (1.6-2.6); Total Protein 6.9 g/dL (6.4-8.2)
[2021-04-12] MEDS: GABAPENTIN 300 MG CAP PO SCH (23:01)
[2021-04-12] MEDS: METOPROLOL SUCCINATE XL 50 MG TAB PO SCH (23:01)
[2021-04-13] VITALS (8 sets, daily range): BP systolic 110–142; BP diastolic 74–84
[2021-04-13] MEDS: TEMAZEPAM 15 MG CAP PO PRN ×2 (02:10→22:30)
[2021-04-13] MEDS ORDERED: SERT50TA19 PO (03:51)
[2021-04-13] MEDS ORDERED: METO-289 PO (03:51)
[2021-04-13] MEDS ORDERED: TRAZ-184 PO (03:51)
[2021-04-13] MEDS ORDERED: HYDR50TA15 PO (03:51)
[2021-04-13] MEDS ORDERED: ASPI-543 PO (03:51)
[2021-04-13] MEDS ORDERED: ALEN70TA74 PO (03:51)
[2021-04-13] MEDS ORDERED: BUSP10TA90 PO (03:51)
[2021-04-13] MEDS: LEVOTHYROXINE SODIUM 25 MCG TAB PO SCH (05:41)
[2021-04-13] MEDS: ASPirin 81 mg TAB PO SCH ×2 (06:40→10:00)
[2021-04-13] MEDS: SODIUM CHLORIDE 0.9% 1,000 ML IV SCH ×2 (06:41→21:13)
[2021-04-13 07:16] LABS: Urine Bacteria NONE SEEN /hpf (None Seen); Urine Blood Negative /uL (Negative); Urine WBC 55 /hpf (0 - 5)
[2021-04-13 08:09] LABS: Basophils # (auto) 0.1 10 ^3/uL (0-0.2); Eosinophils # (auto) 0.2 10 ^3/uL (0-0.8); Monocytes # (auto) 0.6 10 ^3/uL (0-1.3); Nucleated Red Blood Cells % 0.1 %; White Blood Cell 4.1 10^3/uL (4.4-10.8)
[2021-04-13 08:15] LABS: Eosinophils % (auto) 4.3 % (0.0-7.0); Hematocrit 30.1 % (36.0-46.0); Hemoglobin 10.1 g/dL (12.2-16.2); Lymphocytes # (auto) 1.3 10 ^3/uL (0.4-5.4); Lymphocytes % (auto) 32.9 % (10.0-50.0); Mean Corpuscular Hemoglobin 34.7 pg (28.0-32.0); Mean Corpuscular Hgb Conc. 33.7 g/dL (32.0-36.0); Monocytes % (auto) 14.5 % (0.0-12.0); Neutrophils # (auto) 1.9 10 ^3/uL (1.6-8.6); Neutrophils % (auto) 45.3 % (37.0-80.0); Red Blood Cells 2.92 10^6/uL (4.0-5.20); Red Cell Distribution Width 15.7 % (11.8-14.3)
[2021-04-13 08:31] LABS: Potassium 4.4 mmol/L (3.5-5.1)
[2021-04-13 08:54] LABS: BUN/Creatinine Ratio 31.6; Calcium 8.8 mg/dL (8.5-10.1)
[2021-04-13] MEDS: PANTOPRAZOLE 40 MG TAB PO SCH (10:00)
[2021-04-13] MEDS: amLODIPine BESYLATE 5 MG TAB PO SCH (10:00)
[2021-04-13] MEDS: SERTRALINE HCL 50 MG TAB PO SCH (10:00)
[2021-04-13] MEDS ORDERED: ENOXAPARIN SOD 40 MG/0.4 ML SYRINGE SC SCH (10:00)
[2021-04-13] MEDS: GABAPENTIN 300 MG CAP PO SCH ×2 (10:00→21:14)
[2021-04-13] MEDS: FUROSEMIDE 40 MG TAB PO SCH (10:00)
[2021-04-13] MEDS ORDERED: ASPirin 81 mg TAB PO SCH (10:00)
[2021-04-13] MEDS: AMIODARONE HCL 200 MG TAB PO SCH (10:00)
[2021-04-13] MEDS: DOXYCYCLINE 100MG/250ML 250 ML IV SCH ×2 (11:00→22:30)
[2021-04-13] MEDS: NITROFURANTOIN 100 mg CAP PO SCH ×2 (11:00→21:13)
[2021-04-13] MEDS: RIVAROXABAN 20 MG TAB PO SCH (18:30)
[2021-04-13] MEDS: METOPROLOL SUCCINATE XL 50 MG TAB PO SCH (21:14)
[2021-04-13] MEDS ORDERED: ATORVASTATIN 20 MG TAB PO SCH (22:00)
[2021-04-14 05:14] VITALS: BP 159/92
[2021-04-14] MEDS: LEVOTHYROXINE SODIUM 25 MCG TAB PO SCH (05:53)
[2021-04-14 09:00] VITALS: BP 139/103
[2021-04-14] MEDS: SERTRALINE HCL 50 MG TAB PO SCH (10:00)
[2021-04-14] MEDS: AMIODARONE HCL 200 MG TAB PO SCH (10:00)
[2021-04-14] MEDS: DOXYCYCLINE 100MG/250ML 250 ML IV SCH (11:15)
[2021-04-14] MEDS: amLODIPine BESYLATE 5 MG TAB PO SCH (11:17)
[2021-04-14] MEDS: NITROFURANTOIN 100 mg CAP PO SCH (11:17)
[2021-04-14] MEDS: FUROSEMIDE 40 MG TAB PO SCH (11:17)
[2021-04-14] MEDS: PANTOPRAZOLE 40 MG TAB PO SCH (11:18)
[2021-04-14] MEDS: GABAPENTIN 300 MG CAP PO SCH (11:18)
[2021-04-14 12:43] VITALS: BP 163/103
[2021-04-14] MEDS: SODIUM CHLORIDE 0.9% 1,000 ML IV SCH (12:48)
[2021-04-14] MEDS ORDERED: RIV20T PO (16:31)
[2021-04-14] MEDS ORDERED: METO-6 PO (16:31)
[2021-04-14] MEDS ORDERED: DOXY-332 PO (16:33)
[2021-04-14 17:00] VITALS: BP 133/76
[2021-04-14] MEDS ORDERED: PATIENTS OWN MEDICATION (xarelto 20 MG) PO SCH (17:00)
[2021-04-14] MEDS: RIVAROXABAN 20 MG TAB PO SCH (18:00)
[2021-04-14 19:59] VITALS: BP 133/76
[2021-04-14 20:00] VITALS: BP 137/74
== END 2021-04-14 20:35 | disposition home health service (06) | DRG 308 ==
LOC: ER 18:57 → TELE 21:40 → TELE-CENTR 23:59
PROVIDERS: ADMIT Nurse Practitioner; ATTEND Internal Medicine
DX: I48.19 Other persistent atrial fibrillation (principal); J18.9 Pneumonia, unspecified organism; N17.9 Acute kidney failure, unspecified; E78.5 Hyperlipidemia, unspecified; M10.9 Gout, unspecified; N18.9 Chronic kidney disease, unspecified; E03.9 Hypothyroidism, unspecified; I12.9 Hypertensive chronic kidney disease with stage 1 through stage 4 chronic kidney disease, or unspecified chronic kidney disease; F41.9 Anxiety disorder, unspecified; M81.0 Age-related osteoporosis without current pathological fracture; F32.9 Major depressive disorder, single episode, unspecified; Z80.0 Family history of malignant neoplasm of digestive organs; Z82.49 Family history of ischemic heart disease and other diseases of the circulatory system; Z90.710 Acquired absence of both cervix and uterus; Z79.899 Other long term (current) drug therapy; Z88.0 Allergy status to penicillin; Z88.2 Allergy status to sulfonamides; Z88.8 Allergy status to other drugs, medicaments and biological substances; Z90.49 Acquired absence of other specified parts of digestive tract
CPT/HCPCS: 36415; 71046; 80048; 80053; 81001; 83735; 84443; 84484; 85025; 85379; 87426; 93005; 93306; 96374; G0378; J3490

== ENCOUNTER 2021-10-10 16:13 | Inpatient (IN) | payer BC, OTHER ==
[~2021-10-10] VITALS: Ht 152.4 cm; Wt 63.9 kg
[~2021-10-10 16:13] MED LIST changes: +ALEN70TA74 PO; -AMIO200T33 PO; -AMLO-496 PO; -ASPI-543 PO; +BUSP10TA90 PO; +DOXY-332 PO; -METO-159 PO; +METO-6 PO; +RIV20T PO; -SERT25TA14 PO; +SERT50TA19 PO; +TRAZ-184 PO
[2021-10-10] MEDS ORDERED: ONDANSETRON HCL 4 MG/2 ML VIAL IV ONE (19:00)
[2021-10-10] MEDS ORDERED: MORPHINE SULFATE 4 MG/ML SYR/VIAL IV ONE (19:00)
[2021-10-10 19:38] LABS: Urine Bacteria MANY /hpf (None Seen); Urine Blood Negative /uL (Negative); Urine Mucus FEW (None Seen); Urine Specific Gravity 1.008 (1.001-1.035); Urine WBC 29 /hpf (0 - 5)
[2021-10-10 19:45] LABS: Basophils # (auto) 0.1 10 ^3/uL (0-0.2); Basophils % (auto) 1.2 % (0.0-2.0); Eosinophils # (auto) 0.1 10 ^3/uL (0-0.8); Hematocrit 35.7 % (36.0-46.0); Hemoglobin 11.3 g/dL (12.2-16.2); Lymphocytes # (auto) 2.1 10 ^3/uL (0.4-5.4); Lymphocytes % (auto) 20.2 % (10.0-50.0); Mean Corpuscular Hemoglobin 30.9 pg (28.0-32.0); Mean Corpuscular Hgb Conc. 31.6 g/dL (32.0-36.0); Mean Corpuscular Volume 97.8 fL (80.0-100.0); Monocytes # (auto) 0.5 10 ^3/uL (0-1.3); Monocytes % (auto) 4.4 % (0.0-12.0); Neutrophils # (auto) 7.5 10 ^3/uL (1.6-8.6); Neutrophils % (auto) 73.2 % (37.0-80.0); Nucleated Red Blood Cells % 0.1 %; Red Blood Cells 3.65 10^6/uL (4.0-5.20); Red Cell Distribution Width 16.6 % (11.8-14.3); White Blood Cell 10.2 10^3/uL (4.4-10.8)
[2021-10-10 19:55] LABS: INR 0.98 (0.9-1.15); Partial Thromboplastin Time 26.6 sec (24.6-33.4)
[2021-10-10 19:58] LABS: Albumin 3.4 g/dL (3.4-5.0); Calcium 8.9 mg/dL (8.5-10.1); Potassium 4.7 mmol/L (3.5-5.1)
[2021-10-10 20:03] LABS: BUN/Creatinine Ratio 30.8; Bilirubin, Total 0.4 mg/dL (0.2-1.0); Total Protein 6.9 g/dL (6.4-8.2)
[2021-10-10] MEDS ORDERED: ACETAMINOPHEN 325 MG TAB PO PRN (21:00)
[2021-10-10] MEDS ORDERED: ONDANSETRON HCL 4 MG/2 ML VIAL IV PRN (21:00)
[2021-10-10] MEDS: busPIRone HCL 10 MG TAB PO SCH (21:44)
[2021-10-10] MEDS: HYDROcodone-ACET 5/325MG TAB PO PRN (21:45)
[2021-10-10] MEDS: traZODone HCL 50 MG TAB PO SCH (22:00)
[2021-10-10] MEDS: GABAPENTIN 300 MG CAP PO SCH (22:00)
[2021-10-11] MEDS: MORPHINE SULFATE INJ 2 MG/ml SYRG IV PRN ×4 (02:00→21:54)
[2021-10-11 03:16] VITALS: BP 132/49
[2021-10-11] MEDS: HYDROcodone-ACET 5/325MG TAB PO PRN ×3 (04:14→18:35)
[2021-10-11 05:00] VITALS: BP 142/57
[2021-10-11] MEDS: GABAPENTIN 300 MG CAP PO SCH ×3 (06:07→21:53)
[2021-10-11] MEDS: LEVOTHYROXINE SODIUM 25 MCG TAB PO SCH (06:07)
[2021-10-11 07:43] LABS: Basophils # (auto) 0.1 10 ^3/uL (0-0.2); Basophils % (auto) 1.2 % (0.0-2.0); Eosinophils # (auto) 0.1 10 ^3/uL (0-0.8); Eosinophils % (auto) 1.7 % (0.0-7.0); Hematocrit 31.4 % (36.0-46.0); Hemoglobin 10.6 g/dL (12.2-16.2); Lymphocytes % (auto) 34.8 % (10.0-50.0); Mean Corpuscular Hemoglobin 32.2 pg (28.0-32.0); Mean Corpuscular Hgb Conc. 33.8 g/dL (32.0-36.0); Mean Corpuscular Volume 95.1 fL (80.0-100.0); Monocytes # (auto) 0.5 10 ^3/uL (0-1.3); Neutrophils # (auto) 3.1 10 ^3/uL (1.6-8.6); Neutrophils % (auto) 54.3 % (37.0-80.0); Nucleated Red Blood Cells % 0.1 %; Red Cell Distribution Width 16.5 % (11.8-14.3); White Blood Cell 5.7 10^3/uL (4.4-10.8)
[2021-10-11 07:58] LABS: BUN/Creatinine Ratio 28.2; Calcium 8.5 mg/dL (8.5-10.1); Potassium 5.5 mmol/L (3.5-5.1)
[2021-10-11 08:01] LABS: Bilirubin, Total 1.2 mg/dL (0.2-1.0); Total Protein 6.2 g/dL (6.4-8.2)
[2021-10-11 09:00] VITALS: BP 133/67
[2021-10-11] MEDS: cefTRIAXone 1GM/50ML D5W 50 ML IV SCH (09:08)
[2021-10-11] MEDS: busPIRone HCL 10 MG TAB PO SCH ×2 (09:10→21:53)
[2021-10-11] MEDS: FUROSEMIDE 40 MG TAB PO SCH (09:11)
[2021-10-11] MEDS: METOPROLOL SUCCINATE XL 50 MG TAB PO SCH (09:12)
[2021-10-11] MEDS: PANTOPRAZOLE 40 MG TAB PO SCH (09:12)
[2021-10-11 13:00] VITALS: BP 158/53
[2021-10-11 18:10] VITALS: BP 129/91
[2021-10-11 18:11] VITALS: BP 122/80
[2021-10-11] MEDS: traZODone HCL 50 MG TAB PO SCH (21:53)
[2021-10-11] MEDS ORDERED: hydrALAZINE HCL 10 MG TAB PO PRN (23:15)
[2021-10-11] MEDS ORDERED: NIFEdipine ER 30 MG TAB PO ONE (23:30)
[2021-10-12 00:31] VITALS: BP 146/71
[2021-10-12 05:00] VITALS: BP_SYST 106; BP_SYST 165; BP_DIAS 64; BP_DIAS 67
[2021-10-12 05:36] LABS: BUN/Creatinine Ratio 24.6; Calcium 8.3 mg/dL (8.5-10.1); Potassium 4.8 mmol/L (3.5-5.1)
[2021-10-12] MEDS: HYDROcodone-ACET 5/325MG TAB PO PRN (05:52)
[2021-10-12] MEDS: GABAPENTIN 300 MG CAP PO SCH ×2 (05:52→14:00)
[2021-10-12] MEDS: LEVOTHYROXINE SODIUM 25 MCG TAB PO SCH (06:24)
[2021-10-12 08:52] VITALS: BP 162/65
[2021-10-12] MEDS: cefTRIAXone 1GM/50ML D5W 50 ML IV SCH (08:52)
[2021-10-12] MEDS: METOPROLOL SUCCINATE XL 50 MG TAB PO SCH (08:59)
[2021-10-12] MEDS: FUROSEMIDE 40 MG TAB PO SCH (09:00)
[2021-10-12] MEDS: PANTOPRAZOLE 40 MG TAB PO SCH (09:00)
[2021-10-12] MEDS: busPIRone HCL 10 MG TAB PO SCH (09:01)
[2021-10-12] MEDS: MORPHINE SULFATE INJ 2 MG/ml SYRG IV PRN (09:02)
[2021-10-12] MEDS ORDERED: NIFEdipine ER 30 MG TAB PO SCH (10:00)
[2021-10-12 13:00] VITALS: BP 127/58
[2021-10-12] MEDS ORDERED: HYDR-4798 PO (15:05)
[2021-10-12] MEDS ORDERED: NITR50CA24 PO (15:25)
[2021-10-12 16:46] VITALS: BP 143/54
[2021-10-12 18:39] VITALS: BP 143/54
== END 2021-10-12 19:25 | disposition home health service (06) | DRG 536 ==
LOC: ER 16:13 → EDBD 16:13 → OVERFLOW 20:53 → WEST WING 10-11 01:29
PROVIDERS: ADMIT Nurse Practitioner; ATTEND Hospitalist
DX: S72.114A Nondisplaced fracture of greater trochanter of right femur, initial encounter for closed fracture (principal); N17.9 Acute kidney failure, unspecified; N39.0 Urinary tract infection, site not specified; N18.9 Chronic kidney disease, unspecified; E03.9 Hypothyroidism, unspecified; Z20.822 Contact with and (suspected) exposure to COVID-19; E78.5 Hyperlipidemia, unspecified; I48.91 Unspecified atrial fibrillation; S50.311A Abrasion of right elbow, initial encounter; W01.0XXA Fall on same level from slipping, tripping and stumbling without subsequent striking against object, initial encounter; Z96.652 Presence of left artificial knee joint; I12.9 Hypertensive chronic kidney disease with stage 1 through stage 4 chronic kidney disease, or unspecified chronic kidney disease; Z80.0 Family history of malignant neoplasm of digestive organs; Z82.49 Family history of ischemic heart disease and other diseases of the circulatory system; Z90.710 Acquired absence of both cervix and uterus; Z90.49 Acquired absence of other specified parts of digestive tract; Z88.0 Allergy status to penicillin; Z88.2 Allergy status to sulfonamides; Z88.8 Allergy status to other drugs, medicaments and biological substances; Y93.89 Activity, other specified; Y92.89 Other specified places as the place of occurrence of the external cause; Y99.8 Other external cause status
CPT/HCPCS: 36415; 71045; 73560; 80048; 80053; 81001; 85025; 85610; 85730; 93005; 96374; 96375; 97163; G0378; J0696; J2405

== ENCOUNTER 2022-01-18 02:19 | Emergency (ER) | payer BC, OTHER ==
[~2022-01-18] VITALS: Ht 165.1 cm; Wt 68.0 kg
[~2022-01-18 02:19] MED LIST changes: -DOXY-332 PO; +HYDR-4798 PO; +NITR50CA24 PO; -TRAM50TA2 PO
[2022-01-18 03:19] LABS: Basophils # (auto) 0.1 10 ^3/uL (0-0.2); Basophils % (auto) 1.2 % (0.0-2.0); Eosinophils # (auto) 0.1 10 ^3/uL (0-0.8); Eosinophils % (auto) 2.5 % (0.0-7.0); Hematocrit 38.8 % (36.0-46.0); Hemoglobin 12.9 g/dL (12.2-16.2); Lymphocytes # (auto) 2.1 10 ^3/uL (0.4-5.4); Lymphocytes % (auto) 40.6 % (10.0-50.0); Mean Corpuscular Hemoglobin 30.9 pg (28.0-32.0); Mean Corpuscular Hgb Conc. 33.3 g/dL (32.0-36.0); Mean Corpuscular Volume 92.9 fL (80.0-100.0); Monocytes # (auto) 0.4 10 ^3/uL (0-1.3); Monocytes % (auto) 8.5 % (0.0-12.0); Neutrophils # (auto) 2.5 10 ^3/uL (1.6-8.6); Neutrophils % (auto) 47.2 % (37.0-80.0); Nucleated Red Blood Cells % 0.1 %; Red Blood Cells 4.17 10^6/uL (4.0-5.20); Red Cell Distribution Width 16.4 % (11.8-14.3); White Blood Cell 5.2 10^3/uL (4.4-10.8)
[2022-01-18 03:40] LABS: INR 1.07 (0.9-1.15); Partial Thromboplastin Time 36.6 sec (24.6-33.4)
[2022-01-18 03:44] LABS: BUN/Creatinine Ratio 33.5; Potassium 4.1 mmol/L (3.5-5.1)
[2022-01-18 03:45] LABS: Albumin 4.1 g/dL (3.4-5.0); Calcium 8.7 mg/dL (8.5-10.1); Magnesium 2.5 mg/dL (1.6-2.6)
[2022-01-18 03:55] LABS: Bilirubin, Total 0.4 mg/dL (0.2-1.0); Total Protein 7.8 g/dL (6.4-8.2)
[2022-01-18] MEDS ORDERED: dilTIAZem 25 MG/5 ML VIAL IV ONE (04:15)
[2022-01-18 05:44] LABS: Urine Bacteria FEW /hpf (None Seen); Urine Blood Negative /uL (Negative); Urine Specific Gravity 1.005 (1.001-1.035); Urine WBC 24 /hpf (0 - 5)
[2022-01-18 06:00] VITALS: BP 126/55
== END 2022-01-18 05:13 | disposition home or self-care (01) ==
LOC: ER 02:19 → EDBD 02:19 → ER 05:13
DX: S00.83XA Contusion of other part of head, initial encounter (principal); E11.22 Type 2 diabetes mellitus with diabetic chronic kidney disease; I12.9 Hypertensive chronic kidney disease with stage 1 through stage 4 chronic kidney disease, or unspecified chronic kidney disease; N18.9 Chronic kidney disease, unspecified; E78.5 Hyperlipidemia, unspecified; Z90.49 Acquired absence of other specified parts of digestive tract; Z90.710 Acquired absence of both cervix and uterus; Z88.0 Allergy status to penicillin; Z88.1 Allergy status to other antibiotic agents; Z88.2 Allergy status to sulfonamides; W18.39XA Other fall on same level, initial encounter; Y93.89 Activity, other specified; Y92.89 Other specified places as the place of occurrence of the external cause; Y99.8 Other external cause status
CPT/HCPCS: 36415; 70450; 72125; 73590; 80053; 81001; 83735; 84484; 85025; 85610; 85730; 86850; 86900; 86901; 93005

== ENCOUNTER 2022-02-01 06:18 | Inpatient (IN) | payer BC, OTHER ==
[~2022-02-01] VITALS: Ht 157.5 cm; Wt 64.0 kg
[2022-02-01 07:29] LABS: Basophils # (auto) 0 10 ^3/uL (0-0.2); Basophils % (auto) 1.5 % (0.0-2.0); Eosinophils # (auto) 0 10 ^3/uL (0-0.8); Eosinophils % (auto) 0.3 % (0.0-7.0); Hematocrit 35.2 % (36.0-46.0); Hemoglobin 11.7 g/dL (12.2-16.2); Lymphocytes # (auto) 0.9 10 ^3/uL (0.4-5.4); Lymphocytes % (auto) 27.9 % (10.0-50.0); Mean Corpuscular Hemoglobin 31.6 pg (28.0-32.0); Mean Corpuscular Hgb Conc. 33.4 g/dL (32.0-36.0); Mean Corpuscular Volume 94.5 fL (80.0-100.0); Monocytes # (auto) 0.4 10 ^3/uL (0-1.3); Monocytes % (auto) 13.1 % (0.0-12.0); Neutrophils # (auto) 1.8 10 ^3/uL (1.6-8.6); Neutrophils % (auto) 57.2 % (37.0-80.0); Nucleated Red Blood Cells % 0.5 %; Red Blood Cells 3.72 10^6/uL (4.0-5.20); Red Cell Distribution Width 18.5 % (11.8-14.3); White Blood Cell 3.1 10^3/uL (4.4-10.8)
[2022-02-01 07:53] LABS: Albumin 3.9 g/dL (3.4-5.0); BUN/Creatinine Ratio 23.2; Bilirubin, Total 0.4 mg/dL (0.2-1.0); Calcium 8.5 mg/dL (8.5-10.1); Magnesium 3.1 mg/dL (1.6-2.6); Potassium 4.4 mmol/L (3.5-5.1); Total Protein 7.4 g/dL (6.4-8.2)
[2022-02-01 08:05] LABS: Blood Alcohol 442.7 mg/dL (0-5)
[2022-02-01] MEDS ORDERED: SODIUM CHLORIDE 0.9% 1,000 ML IV ONE (08:30)
[2022-02-01] MEDS ORDERED: D5W/SOD CHL 0.45% 1,000 ML IV ONE (08:30)
[2022-02-01] MEDS ORDERED: ASPirin 325 MG TAB PO ONE (08:30)
[2022-02-01] MEDS ORDERED: HYDROcodone-ACET 10/325MG TAB PO PRN (12:45)
[2022-02-01] MEDS ORDERED: NITROGLYCERIN 0.4 MG SL TAB SL PRN (13:00)
[2022-02-01] MEDS ORDERED: MORPHINE SULFATE INJ 2 MG/ml SYRG IV PRN (13:00)
[2022-02-01] MEDS ORDERED: GABAPENTIN 300 MG CAP PO SCH (14:00)
[2022-02-01 14:30] LABS: Free T4 (Free Thyroxine) 1.17 ng/dL (0.89-1.76)
[2022-02-01 14:31] LABS: Folate (Folic Acid) 12.07 ng/mL (5.38-24)
[2022-02-01 14:54] LABS: INR 0.97 (0.9-1.15); Partial Thromboplastin Time 29.1 sec (24.6-33.4)
[2022-02-01] MEDS ORDERED: TRAZODONE HCL PO SCH (22:00)
[2022-02-01] MEDS: traZODone HCL 50 MG TAB PO SCH (22:43)
[2022-02-01] MEDS: METOPROLOL SUCCINATE XL 50 MG TAB PO SCH (22:44)
[2022-02-01] MEDS: GABAPENTIN 100 MG CAP PO SCH ×2 (22:45→22:50)
[2022-02-01] MEDS: busPIRone HCL 10 MG TAB PO SCH ×2 (22:46→22:49)
[2022-02-01] MEDS: RIVAROXABAN 20 MG TAB PO SCH (22:47)
[2022-02-01] MEDS: PANTOPRAZOLE 40 MG TAB PO SCH (22:47)
[2022-02-02 03:25] LABS: Urine Bacteria FEW /hpf (None Seen); Urine Blood 3+ /uL (Negative); Urine Specific Gravity 1.012 (1.001-1.035); Urine WBC 260 /hpf (0 - 5); Urine WBC Clumps PRESENT /hpf (None Seen)
[2022-02-02] MEDS: busPIRone HCL 10 MG TAB PO SCH ×3 (05:43→22:58)
[2022-02-02] MEDS: GABAPENTIN 100 MG CAP PO SCH ×3 (05:43→22:57)
[2022-02-02] MEDS ORDERED: LORazepam 2MG/ML-1ML VIAL IV PRN (09:30)
[2022-02-02] MEDS ORDERED: PATIENTS OWN MEDICATION (Levothyroxine Sodium 1 TAB) PO SCH (10:00)
[2022-02-02] MEDS: PANTOPRAZOLE 40 MG TAB PO SCH ×2 (10:01→22:58)
[2022-02-02] MEDS: SERTRALINE HCL 50 MG TAB PO SCH (10:01)
[2022-02-02] MEDS: LEVOTHYROXINE SODIUM 25 MCG TAB PO SCH (10:01)
[2022-02-02] MEDS: THIAMINE HCL 100 MG TAB PO SCH (10:01)
[2022-02-02] MEDS ORDERED: FOLIC ACID 1 MG, MULTIPLE VITAMIN 10 ML, MAGNESIUM SULF SDV 50% 8 MEQ, THIAMINE INJ 100... INJ SCH ×5 (12:00)
[2022-02-02] MEDS ORDERED: DOXYCYCLINE 100MG/250ML 250 ML IV SCH (13:00)
[2022-02-02] MEDS: SODIUM CHLORIDE 0.9% 1,000 ML IV SCH (13:05)
[2022-02-02 13:46] LABS: BUN/Creatinine Ratio 21.5; Calcium 7.7 mg/dL (8.5-10.1); Potassium 4.4 mmol/L (3.5-5.1)
[2022-02-02] MEDS ORDERED: AZTREONAM 1GM INJ 1 GM in D5W 5% 50 ML IV SCH (14:00)
[2022-02-02] MEDS: RIVAROXABAN 20 MG TAB PO SCH (18:00)
[2022-02-02] MEDS: traZODone HCL 50 MG TAB PO SCH (22:58)
[2022-02-02] MEDS: METOPROLOL SUCCINATE XL 50 MG TAB PO SCH (23:05)
[2022-02-02 23:15] VITALS: BP 126/63
[2022-02-03] MEDS ORDERED: AZTREONAM 1GM INJ 1 GM in D5W 5% 50 ML IV SCH (01:45)
[2022-02-03] MEDS: AZTREONAM 1GM INJ 1 GM in D5W 5% 50 ML IV SCH ×4 (02:00→15:15)
[2022-02-03] MEDS ORDERED: AZTREONAM 1 GM INJ VIAL ONE (02:00)
[2022-02-03] MEDS ORDERED: AZTREONAM 1 GM in D5W 5% 50 ML IV SCH (02:00)
[2022-02-03] MEDS: SODIUM CHLORIDE 0.9% 1,000 ML IV SCH ×2 (02:36→15:40)
[2022-02-03] MEDS: GABAPENTIN 100 MG CAP PO SCH ×3 (06:03→21:57)
[2022-02-03] MEDS: busPIRone HCL 10 MG TAB PO SCH ×2 (06:03→21:59)
[2022-02-03 07:12] LABS: Basophils # (auto) 0 10 ^3/uL (0-0.2); Basophils % (auto) 0.6 % (0.0-2.0); Eosinophils # (auto) 0 10 ^3/uL (0-0.8); Eosinophils % (auto) 0.9 % (0.0-7.0); Hematocrit 29.8 % (36.0-46.0); Hemoglobin 9.9 g/dL (12.2-16.2); Lymphocytes # (auto) 0.9 10 ^3/uL (0.4-5.4); Lymphocytes % (auto) 19.3 % (10.0-50.0); Mean Corpuscular Hemoglobin 31.7 pg (28.0-32.0); Mean Corpuscular Hgb Conc. 33.2 g/dL (32.0-36.0); Mean Corpuscular Volume 95.6 fL (80.0-100.0); Monocytes # (auto) 0.6 10 ^3/uL (0-1.3); Monocytes % (auto) 12.8 % (0.0-12.0); Neutrophils % (auto) 66.4 % (37.0-80.0); Nucleated Red Blood Cells % 0.1 %; Red Blood Cells 3.12 10^6/uL (4.0-5.20); White Blood Cell 4.6 10^3/uL (4.4-10.8)
[2022-02-03 07:17] LABS: BUN/Creatinine Ratio 25.8; Calcium 7.9 mg/dL (8.5-10.1); Potassium 4.3 mmol/L (3.5-5.1)
[2022-02-03 09:00] VITALS: BP 134/52
[2022-02-03] MEDS ORDERED: traZODone HCL 50 MG TAB PO PRN (11:15)
[2022-02-03] MEDS: LEVOTHYROXINE SODIUM 25 MCG TAB PO SCH (12:19)
[2022-02-03] MEDS: THIAMINE HCL 100 MG TAB PO SCH (12:19)
[2022-02-03] MEDS: SERTRALINE HCL 50 MG TAB PO SCH (12:19)
[2022-02-03] MEDS: PANTOPRAZOLE 40 MG TAB PO SCH ×2 (12:19→21:57)
[2022-02-03] MEDS: MULTIPLE VITAMINS W/ MINERALS TAB PO SCH (12:19)
[2022-02-03 13:00] VITALS: BP 130/58
[2022-02-03 16:44] VITALS: BP 151/70
[2022-02-03] MEDS: RIVAROXABAN 20 MG TAB PO SCH (18:55)
[2022-02-03] MEDS: AMIODARONE HCL 200 MG TAB PO SCH (21:59)
[2022-02-03] MEDS: METOPROLOL SUCCINATE XL 50 MG TAB PO SCH (22:02)
[2022-02-03 22:53] VITALS: BP 136/63
[2022-02-04] MEDS: AZTREONAM 1GM INJ 1 GM in D5W 5% 50 ML IV SCH ×2 (02:12→14:03)
[2022-02-04] MEDS: SODIUM CHLORIDE 0.9% 1,000 ML IV SCH (05:00)
[2022-02-04] MEDS: GABAPENTIN 100 MG CAP PO SCH ×2 (05:20→14:03)
[2022-02-04 07:02] LABS: Albumin 2.8 g/dL (3.4-5.0); BUN/Creatinine Ratio 25.5; Calcium 8.5 mg/dL (8.5-10.1); Potassium 4.5 mmol/L (3.5-5.1)
[2022-02-04 07:04] LABS: Bilirubin, Total 0.4 mg/dL (0.2-1.0); Total Protein 5.6 g/dL (6.4-8.2)
[2022-02-04 07:30] VITALS: BP 142/63
[2022-02-04 09:03] VITALS: BP 142/63
[2022-02-04] MEDS: busPIRone HCL 10 MG TAB PO SCH (10:29)
[2022-02-04] MEDS: AMIODARONE HCL 200 MG TAB PO SCH (10:29)
[2022-02-04] MEDS: MULTIPLE VITAMINS W/ MINERALS TAB PO SCH (10:29)
[2022-02-04] MEDS: PANTOPRAZOLE 40 MG TAB PO SCH (10:29)
[2022-02-04] MEDS: THIAMINE HCL 100 MG TAB PO SCH (10:29)
[2022-02-04] MEDS: SERTRALINE HCL 50 MG TAB PO SCH (10:30)
[2022-02-04] MEDS: LEVOTHYROXINE SODIUM 25 MCG TAB PO SCH (10:30)
[2022-02-04] MEDS ORDERED: METO-6 PO (11:16)
[2022-02-04] MEDS ORDERED: DOXY-286 PO (11:16)
[2022-02-04] MEDS ORDERED: MULT-351 PO (11:16)
[2022-02-04 12:54] VITALS: BP 129/66
[2022-02-04 12:55] VITALS: BP 129/66
[2022-02-04 17:07] VITALS: BP 131/53
== END 2022-02-04 15:11 | disposition home health service (06) | DRG 948 ==
LOC: ER 06:18 → EDBD 06:18 → TELE 12:53 → TELE-EAST 02-02 22:07
PROVIDERS: ADMIT Hospitalist; ATTEND Hospitalist
DX: R53.1 Weakness (principal); N39.0 Urinary tract infection, site not specified; N17.9 Acute kidney failure, unspecified; I13.0 Hypertensive heart and chronic kidney disease with heart failure and stage 1 through stage 4 chronic kidney disease, or unspecified chronic kidney disease; E86.0 Dehydration; E11.22 Type 2 diabetes mellitus with diabetic chronic kidney disease; N18.9 Chronic kidney disease, unspecified; S09.90XA Unspecified injury of head, initial encounter; E78.5 Hyperlipidemia, unspecified; Z20.822 Contact with and (suspected) exposure to COVID-19; W18.39XA Other fall on same level, initial encounter; I48.0 Paroxysmal atrial fibrillation; D64.9 Anemia, unspecified; F10.229 Alcohol dependence with intoxication, unspecified; Y90.9 Presence of alcohol in blood, level not specified; E07.9 Disorder of thyroid, unspecified; Z79.01 Long term (current) use of anticoagulants; Z80.0 Family history of malignant neoplasm of digestive organs; Z82.49 Family history of ischemic heart disease and other diseases of the circulatory system; Y93.89 Activity, other specified; Y92.89 Other specified places as the place of occurrence of the external cause; Y99.8 Other external cause status; Z83.3 Family history of diabetes mellitus; Z88.1 Allergy status to other antibiotic agents; Z90.49 Acquired absence of other specified parts of digestive tract; Z90.710 Acquired absence of both cervix and uterus; Z88.0 Allergy status to penicillin; Z88.8 Allergy status to other drugs, medicaments and biological substances
CPT/HCPCS: 36415; 70551; 71045; 80048; 80053; 80320; 81001; 82140; 82607; 82746; 83735; 84425; 84439; 84443; 84484; 85025; 85610; 85730; 87086; 87088; 87186; 87426; 93005; 93306; 95819; 96360; 97163; 99291; G0378; J7060

== ENCOUNTER 2022-03-06 08:04 | Inpatient (IN) | payer BC, OTHER ==
[~2022-03-06] VITALS: Ht 167.6 cm; Wt 75.0 kg
[~2022-03-06 08:04] MED LIST changes: +DOXY-286 PO; +MULT-351 PO; -NITR50CA24 PO
[2022-03-06] MEDS ORDERED: ASPirin 81 mg TAB PO ONE (09:15)
[2022-03-06] MEDS ORDERED: SODIUM CHLORIDE 0.9% 1,000 ML IV ONE ×2 (09:15→16:30)
[2022-03-06 10:07] LABS: Basophils # (auto) 0.1 10 ^3/uL (0-0.2); Basophils % (auto) 1.8 % (0.0-2.0); Eosinophils # (auto) 0.1 10 ^3/uL (0-0.8); Hematocrit 36.5 % (36.0-46.0); Hemoglobin 11.8 g/dL (12.2-16.2); Lymphocytes # (auto) 0.8 10 ^3/uL (0.4-5.4); Lymphocytes % (auto) 12.6 % (10.0-50.0); Mean Corpuscular Hemoglobin 31.7 pg (28.0-32.0); Mean Corpuscular Hgb Conc. 32.4 g/dL (32.0-36.0); Mean Corpuscular Volume 97.9 fL (80.0-100.0); Monocytes # (auto) 0.3 10 ^3/uL (0-1.3); Monocytes % (auto) 4.8 % (0.0-12.0); Neutrophils # (auto) 4.8 10 ^3/uL (1.6-8.6); Neutrophils % (auto) 78.8 % (37.0-80.0); Red Blood Cells 3.73 10^6/uL (4.0-5.20); Red Cell Distribution Width 19.5 % (11.8-14.3); White Blood Cell 6.1 10^3/uL (4.4-10.8)
[2022-03-06 10:30] LABS: Albumin 3.7 g/dL (3.4-5.0); Calcium 9.5 mg/dL (8.5-10.1); Potassium 4.7 mmol/L (3.5-5.1)
[2022-03-06 10:33] LABS: BUN/Creatinine Ratio 25.7; Bilirubin, Total 0.4 mg/dL (0.2-1.0)
[2022-03-06] MEDS ORDERED: D5W 5% 1,000 ML IV ONE (11:00)
[2022-03-06 11:02] LABS: INR 1.24 (0.9-1.15); Partial Thromboplastin Time 35.4 sec (24.6-33.4)
[2022-03-06] MEDS ORDERED: cefTRIAXone 1GM/50ML D5W 50 ML IV ONE (12:30)
[2022-03-06] MEDS ORDERED: AZITHROMYCIN 500MG/ 250ML 250 ML IV ONE (12:30)
[2022-03-06] MEDS ORDERED: FUROSEMIDE 20 MG/2 ML VIAL IV ONE (12:30)
[2022-03-06] MEDS ORDERED: HYDROcodone-ACET 5/325MG TAB PO ONE (16:15)
[2022-03-06] MEDS ORDERED: NITROGLYCERIN 0.4 MG SL TAB SL PRN (16:30)
[2022-03-06] MEDS ORDERED: MORPHINE SULFATE INJ 2 MG/ml SYRG IV PRN (16:30)
[2022-03-06] MEDS ORDERED: DOCUSATE SOD 100 MG CAP PO PRN (16:30)
[2022-03-06] MEDS ORDERED: hydrALAZINE HCL 20 MG/ML VL IV PRN (16:30)
[2022-03-06] MEDS ORDERED: ONDANSETRON HCL 4 MG/2 ML VIAL IV PRN (16:30)
[2022-03-06] MEDS ORDERED: ACETAMINOPHEN 325 MG TAB PO PRN (16:30)
[2022-03-06] MEDS: AMIODARONE HCL 200 MG TAB PO SCH ×2 (17:29→22:04)
[2022-03-06] MEDS: METOPROLOL SUCCINATE XL 50 MG TAB PO SCH (17:29)
[2022-03-06] MEDS: NIFEdipine ER 30 MG TAB PO SCH (17:30)
[2022-03-06] MEDS: RIVAROXABAN 20 MG TAB PO SCH (21:20)
[2022-03-06] MEDS: GABAPENTIN 300 MG CAP PO SCH (22:04)
[2022-03-07 05:37] LABS: Basophils # (auto) 0.1 10 ^3/uL (0-0.2); Basophils % (auto) 2.2 % (0.0-2.0); Eosinophils # (auto) 0.2 10 ^3/uL (0-0.8); Eosinophils % (auto) 5.1 % (0.0-7.0); Hematocrit 32.2 % (36.0-46.0); Hemoglobin 10.4 g/dL (12.2-16.2); Lymphocytes # (auto) 1.6 10 ^3/uL (0.4-5.4); Lymphocytes % (auto) 31.9 % (10.0-50.0); Mean Corpuscular Hemoglobin 31.3 pg (28.0-32.0); Mean Corpuscular Hgb Conc. 32.3 g/dL (32.0-36.0); Mean Corpuscular Volume 96.9 fL (80.0-100.0); Monocytes # (auto) 0.4 10 ^3/uL (0-1.3); Monocytes % (auto) 8.1 % (0.0-12.0); Neutrophils # (auto) 2.6 10 ^3/uL (1.6-8.6); Neutrophils % (auto) 52.7 % (37.0-80.0); Nucleated Red Blood Cells % 0.1 %; Red Blood Cells 3.32 10^6/uL (4.0-5.20); Red Cell Distribution Width 18.9 % (11.8-14.3); White Blood Cell 4.9 10^3/uL (4.4-10.8)
[2022-03-07 05:58] LABS: BUN/Creatinine Ratio 23.7; Calcium 8.9 mg/dL (8.5-10.1); Potassium 4.3 mmol/L (3.5-5.1)
[2022-03-07] MEDS: cefTRIAXone 1GM/50ML D5W 50 ML IV SCH (10:00)
[2022-03-07] MEDS: busPIRone HCL 10 MG TAB PO SCH (10:31)
[2022-03-07] MEDS: AMIODARONE HCL 200 MG TAB PO SCH ×2 (10:33→22:44)
[2022-03-07] MEDS: GABAPENTIN 300 MG CAP PO SCH ×2 (11:44→22:44)
[2022-03-07] MEDS: METOPROLOL SUCCINATE XL 50 MG TAB PO SCH (11:47)
[2022-03-07] MEDS: NIFEdipine ER 30 MG TAB PO SCH (11:48)
[2022-03-07] MEDS: SERTRALINE HCL 50 MG TAB PO SCH (12:43)
[2022-03-07] MEDS: AZITHROMYCIN 500MG/ 250ML 250 ML IV SCH (12:46)
[2022-03-07] MEDS ORDERED: methylPREDNISolone SOD SUCC 40 MG/ML VL IV ONE ×2 (15:30→17:45)
[2022-03-07] MEDS ORDERED: DOXY-286 PO (15:38)
[2022-03-07] MEDS: LEVOTHYROXINE SODIUM 50 MCG TAB PO SCH (17:25)
[2022-03-07] MEDS: HYDROcodone-ACET 5/325MG TAB PO PRN (18:28)
[2022-03-07] MEDS: RIVAROXABAN 20 MG TAB PO SCH (19:00)
[2022-03-07 22:27] LABS: Urine Specific Gravity 1.015 (1.001-1.035)
[2022-03-07 22:28] LABS: Urine Blood Negative /uL (Negative)
[2022-03-07 22:30] LABS: Urine Bacteria FEW /hpf (None Seen)
[2022-03-08] MEDS: HYDROcodone-ACET 5/325MG TAB PO PRN (03:02)
[2022-03-08 06:06] LABS: Basophils # (auto) 0 10 ^3/uL (0-0.2); Basophils % (auto) 0.9 % (0.0-2.0); Eosinophils # (auto) 0 10 ^3/uL (0-0.8); Hematocrit 33.4 % (36.0-46.0); Hemoglobin 10.9 g/dL (12.2-16.2); Lymphocytes # (auto) 0.6 10 ^3/uL (0.4-5.4); Lymphocytes % (auto) 16.5 % (10.0-50.0); Mean Corpuscular Hemoglobin 31.4 pg (28.0-32.0); Mean Corpuscular Hgb Conc. 32.7 g/dL (32.0-36.0); Monocytes # (auto) 0 10 ^3/uL (0-1.3); Neutrophils % (auto) 81.6 % (37.0-80.0); Nucleated Red Blood Cells % 0.1 %; Red Blood Cells 3.47 10^6/uL (4.0-5.20); Red Cell Distribution Width 18.5 % (11.8-14.3); White Blood Cell 3.6 10^3/uL (4.4-10.8)
[2022-03-08 06:24] LABS: Calcium 8.9 mg/dL (8.5-10.1); Potassium 4.6 mmol/L (3.5-5.1)
[2022-03-08 06:27] LABS: BUN/Creatinine Ratio 24.3
[2022-03-08] MEDS: LEVOTHYROXINE SODIUM 50 MCG TAB PO SCH (06:50)
[2022-03-08] MEDS ORDERED: predniSONE 20 MG TAB PO SCH (10:00)
[2022-03-08] MEDS: NIFEdipine ER 30 MG TAB PO SCH (10:10)
[2022-03-08] MEDS: METOPROLOL SUCCINATE XL 50 MG TAB PO SCH (10:10)
[2022-03-08] MEDS: GABAPENTIN 300 MG CAP PO SCH (10:11)
[2022-03-08] MEDS: SERTRALINE HCL 50 MG TAB PO SCH (10:22)
[2022-03-08] MEDS: busPIRone HCL 10 MG TAB PO SCH (10:22)
[2022-03-08] MEDS: AMIODARONE HCL 200 MG TAB PO SCH (10:22)
[2022-03-08] MEDS: cefTRIAXone 1GM/50ML D5W 50 ML IV SCH (10:22)
[2022-03-08 13:19] VITALS: BP 154/58
[2022-03-08] MEDS ORDERED: PRED20TA2 PO (14:56)
[2022-03-08] MEDS ORDERED: RIVAROXABAN 15 MG TAB PO SCH (18:00)
== END 2022-03-08 15:45 | disposition home health service (06) | DRG 189 ==
LOC: ER 08:04 → EDBD 08:04 → TELE 16:19
PROVIDERS: ADMIT Internal Medicine; ATTEND Internal Medicine
DX: J96.01 Acute respiratory failure with hypoxia (principal); J18.9 Pneumonia, unspecified organism; I13.0 Hypertensive heart and chronic kidney disease with heart failure and stage 1 through stage 4 chronic kidney disease, or unspecified chronic kidney disease; J44.0 Chronic obstructive pulmonary disease with (acute) lower respiratory infection; J44.1 Chronic obstructive pulmonary disease with (acute) exacerbation; N18.4 Chronic kidney disease, stage 4 (severe); E03.9 Hypothyroidism, unspecified; E11.22 Type 2 diabetes mellitus with diabetic chronic kidney disease; F32.A Depression, unspecified; F41.9 Anxiety disorder, unspecified; Z20.822 Contact with and (suspected) exposure to COVID-19; I50.9 Heart failure, unspecified; I25.10 Atherosclerotic heart disease of native coronary artery without angina pectoris; I48.91 Unspecified atrial fibrillation; M81.0 Age-related osteoporosis without current pathological fracture; Z88.0 Allergy status to penicillin; Z88.1 Allergy status to other antibiotic agents; Z90.710 Acquired absence of both cervix and uterus; Z79.01 Long term (current) use of anticoagulants; Z80.0 Family history of malignant neoplasm of digestive organs; Z82.49 Family history of ischemic heart disease and other diseases of the circulatory system; Z90.49 Acquired absence of other specified parts of digestive tract
CPT/HCPCS: 36415; 36600; 71045; 80048; 80053; 81003; 81015; 82805; 83735; 83880; 84443; 84484; 85025; 85379; 85610; 85730; 87040; 87426; 87804; 87807; 93005; 96361; 96365; 96368; 96375; G0378; J0696

== ENCOUNTER 2022-04-08 18:41 | Inpatient (IN) | payer BC, OTHER ==
[~2022-04-08] VITALS: Ht 152.4 cm; Wt 63.8 kg
[~2022-04-08 18:41] MED LIST changes: +PRED20TA2 PO
[2022-04-08] MEDS ORDERED: BUDESONIDE (INHALATION) 0.5 MG/2 ML NEB NEB ONE (19:00)
[2022-04-08] MEDS ORDERED: ALBUTEROL SULF 2.5 MG/0.5ML(0.5%) NEB SOLN HHN ONE (19:00)
[2022-04-08] MEDS ORDERED: ALBUTEROL MEDNEB 2.5 mg/3ml NEB ONE (19:09)
[2022-04-08 19:47] LABS: Basophils # (auto) 0.2 10 ^3/uL (0-0.2); Basophils % (auto) 2.2 % (0.0-2.0); Eosinophils # (auto) 0 10 ^3/uL (0-0.8); Eosinophils % (auto) 0.4 % (0.0-7.0); Hematocrit 35.6 % (36.0-46.0); Hemoglobin 11.4 g/dL (12.2-16.2); Lymphocytes # (auto) 0.7 10 ^3/uL (0.4-5.4); Mean Corpuscular Hemoglobin 30.8 pg (28.0-32.0); Mean Corpuscular Hgb Conc. 32.2 g/dL (32.0-36.0); Mean Corpuscular Volume 95.8 fL (80.0-100.0); Monocytes # (auto) 0.4 10 ^3/uL (0-1.3); Monocytes % (auto) 5.3 % (0.0-12.0); Neutrophils # (auto) 5.8 10 ^3/uL (1.6-8.6); Neutrophils % (auto) 82.1 % (37.0-80.0); Nucleated Red Blood Cells % 0.3 %; Red Blood Cells 3.71 10^6/uL (4.0-5.20); Red Cell Distribution Width 17.6 % (11.8-14.3)
[2022-04-08 20:01] LABS: Albumin 3.6 g/dL (3.4-5.0); BUN/Creatinine Ratio 27.6; Magnesium 2.6 mg/dL (1.6-2.6)
[2022-04-08 20:04] LABS: Bilirubin, Total 0.4 mg/dL (0.2-1.0); Total Protein 6.9 g/dL (6.4-8.2)
[2022-04-08 20:10] LABS: INR 1.34 (0.9-1.15); Partial Thromboplastin Time 41.3 sec (24.6-33.4)
[2022-04-08] MEDS ORDERED: ASPirin 325 MG TAB PO ONE (20:30)
[2022-04-08] MEDS ORDERED: DOXYCYCLINE 100MG/250ML 250 ML IV ONE (20:45)
[2022-04-08] MEDS ORDERED: HEPARIN SODIUM (PORCINE) 5000 UNITS/ML 1ML VIAL IV ONE ×2 (21:30→21:45)
[2022-04-08] MEDS ORDERED: ENOXAPARIN SOD 60 MG/0.6 ML SYRINGE SC SCH (22:00)
[2022-04-08] MEDS ORDERED: DEXTROSE (50%) 50ML SYRG IV PRN (22:00)
[2022-04-08] MEDS ORDERED: NITROGLYCERIN 0.4 MG SL TAB SL PRN (22:00)
[2022-04-08] MEDS ORDERED: ONDANSETRON HCL 4 MG/2 ML VIAL IV PRN (22:00)
[2022-04-08] MEDS ORDERED: ACETAMINOPHEN 325 MG TAB PO PRN (22:00)
[2022-04-08] MEDS ORDERED: SODIUM CHLORIDE 0.9% 1,000 ML IV SCH (22:00)
[2022-04-08] MEDS: AZITHROMYCIN 500MG/ 250ML 250 ML IV SCH (22:00)
[2022-04-08] MEDS ORDERED: MAALOX PLUS or MAALOX 30 ML PO ONE (22:00)
[2022-04-09] MEDS ORDERED: HEPARIN DRIP/D5W 100UNITS/ML 250 ML IV SCH
[2022-04-09 00:18] LABS: Basophils # (auto) 0.1 10 ^3/uL (0-0.2); Eosinophils # (auto) 0 10 ^3/uL (0-0.8); Eosinophils % (auto) 0.2 % (0.0-7.0); Hemoglobin 11.5 g/dL (12.2-16.2); Monocytes # (auto) 0.3 10 ^3/uL (0-1.3); Nucleated Red Blood Cells % 0.1 %
[2022-04-09 00:20] LABS: Basophils % (auto) 1.3 % (0.0-2.0); Hematocrit 35.6 % (36.0-46.0); Lymphocytes # (auto) 0.9 10 ^3/uL (0.4-5.4); Lymphocytes % (auto) 16.5 % (10.0-50.0); Mean Corpuscular Hemoglobin 30.8 pg (28.0-32.0); Mean Corpuscular Hgb Conc. 32.3 g/dL (32.0-36.0); Mean Corpuscular Volume 95.2 fL (80.0-100.0); Monocytes % (auto) 4.9 % (0.0-12.0); Neutrophils # (auto) 4.4 10 ^3/uL (1.6-8.6); Neutrophils % (auto) 77.1 % (37.0-80.0); Red Blood Cells 3.74 10^6/uL (4.0-5.20); Red Cell Distribution Width 17.2 % (11.8-14.3); White Blood Cell 5.7 10^3/uL (4.4-10.8)
[2022-04-09] MEDS: ACCU-CHEK COMFORT CURVE STRIP VI SCH ×6 (00:29→20:00)
[2022-04-09 00:31] LABS: INR 1.17 (0.9-1.15); Partial Thromboplastin Time 37.3 sec (24.6-33.4)
[2022-04-09 00:50] LABS: Urine Bacteria FEW /hpf (None Seen); Urine Blood Negative /uL (Negative); Urine Specific Gravity 1.015 (1.001-1.035); Urine WBC 1 /hpf (0 - 5)
[2022-04-09] MEDS: InsuLIN REG 1unit/0.01ml Soln (100units/ml) SC SCH ×6 (00:50→20:35)
[2022-04-09] MEDS: CARVEDILOL 3.125 MG TAB PO SCH ×3 (01:12→22:39)
[2022-04-09] MEDS: ATORVASTATIN 20 MG TAB PO SCH ×2 (01:15→22:36)
[2022-04-09] MEDS: IPRATROPIUM BROM 0.5 MG/2.5ML INH SOL NEB SCH ×6 (01:18→22:45)
[2022-04-09] MEDS: ALBUTEROL SULF 2.5 MG/0.5ML(0.5%) NEB SOLN NEB SCH ×6 (01:18→22:46)
[2022-04-09] MEDS: methylPREDNISolone SOD SUCC 40 MG/ML VL IV SCH ×3 (02:28→22:36)
[2022-04-09 02:50] VITALS: BP 135/64
[2022-04-09] MEDS ORDERED: ALBUTEROL MEDNEB 2.5 mg/3ml NEB ONE ×3 (05:48→14:20)
[2022-04-09 06:39] LABS: Basophils # (auto) 0 10 ^3/uL (0-0.2); Basophils % (auto) 0.9 % (0.0-2.0); Eosinophils # (auto) 0 10 ^3/uL (0-0.8); Eosinophils % (auto) 0.1 % (0.0-7.0); Hematocrit 33.6 % (36.0-46.0); Hemoglobin 11.5 g/dL (12.2-16.2); Lymphocytes # (auto) 0.4 10 ^3/uL (0.4-5.4); Lymphocytes % (auto) 7.2 % (10.0-50.0); Mean Corpuscular Hemoglobin 32.1 pg (28.0-32.0); Mean Corpuscular Hgb Conc. 34.2 g/dL (32.0-36.0); Mean Corpuscular Volume 93.8 fL (80.0-100.0); Monocytes # (auto) 0 10 ^3/uL (0-1.3); Monocytes % (auto) 0.9 % (0.0-12.0); Neutrophils # (auto) 4.4 10 ^3/uL (1.6-8.6); Neutrophils % (auto) 90.9 % (37.0-80.0); Nucleated Red Blood Cells % 0.1 %; Red Blood Cells 3.59 10^6/uL (4.0-5.20); Red Cell Distribution Width 16.9 % (11.8-14.3); White Blood Cell 4.9 10^3/uL (4.4-10.8)
[2022-04-09 06:58] LABS: Potassium 5.2 mmol/L (3.5-5.1)
[2022-04-09 07:05] LABS: BUN/Creatinine Ratio 28.4; Calcium 9.1 mg/dL (8.5-10.1)
[2022-04-09] MEDS: ASPirin 81 mg TAB PO SCH (09:41)
[2022-04-09] MEDS: DOCUSATE SOD 100 MG CAP PO SCH (09:41)
[2022-04-09] MEDS: CLOPIDOGREL BISULFATE 75 MG TAB PO SCH (09:42)
[2022-04-09 09:52] LABS: INR 1.04 (0.9-1.15); Partial Thromboplastin Time 54.6 sec (24.6-33.4)
[2022-04-09 15:54] LABS: INR 0.99 (0.9-1.15)
[2022-04-09] MEDS: HEPARIN DRIP/D5W 100UNITS/ML 250 ML IV SCH (16:19)
[2022-04-09 22:17] LABS: INR 0.99 (0.9-1.15); Partial Thromboplastin Time 62.4 sec (24.6-33.4)
[2022-04-09] MEDS: AMIODARONE HCL 200 MG TAB PO SCH (22:37)
[2022-04-09] MEDS: GABAPENTIN 300 MG CAP PO SCH (22:39)
[2022-04-09] MEDS: HYDROcodone-ACET 5/325MG TAB PO PRN (23:35)
[2022-04-10] MEDS: ACCU-CHEK COMFORT CURVE STRIP VI SCH ×6 (00:06→20:28)
[2022-04-10] MEDS: InsuLIN REG 1unit/0.01ml Soln (100units/ml) SC SCH ×6 (04:18→20:30)
[2022-04-10 04:41] LABS: INR 0.99 (0.9-1.15); Partial Thromboplastin Time 51.1 sec (24.6-33.4)
[2022-04-10] MEDS: HYDROcodone-ACET 5/325MG TAB PO PRN (05:16)
[2022-04-10] MEDS ORDERED: diphenhdrAMINE HCL 50 MG/1 ML VL IV ONE (05:30)
[2022-04-10] MEDS: IPRATROPIUM BROM 0.5 MG/2.5ML INH SOL NEB SCH ×4 (06:00→20:07)
[2022-04-10] MEDS: ALBUTEROL SULF 2.5 MG/0.5ML(0.5%) NEB SOLN NEB SCH ×4 (06:00→20:07)
[2022-04-10] MEDS: GABAPENTIN 300 MG CAP PO SCH ×2 (06:08→14:00)
[2022-04-10] MEDS ORDERED: ALBUTEROL MEDNEB 2.5 mg/3ml NEB ONE ×5 (06:11→21:54)
[2022-04-10] MEDS: DOCUSATE SOD 100 MG CAP PO SCH (10:00)
[2022-04-10] MEDS: ASPirin 81 mg TAB PO SCH (10:00)
[2022-04-10 10:39] LABS: INR 1.02 (0.9-1.15); Partial Thromboplastin Time 61.8 sec (24.6-33.4)
[2022-04-10] MEDS: methylPREDNISolone SOD SUCC 40 MG/ML VL IV SCH (10:51)
[2022-04-10] MEDS: AZITHROMYCIN 500MG/ 250ML 250 ML IV SCH (10:51)
[2022-04-10] MEDS: AMIODARONE HCL 200 MG TAB PO SCH (10:52)
[2022-04-10] MEDS: CARVEDILOL 3.125 MG TAB PO SCH (11:00)
[2022-04-10] MEDS: CLOPIDOGREL BISULFATE 75 MG TAB PO SCH (11:18)
[2022-04-10 12:49] VITALS: BP 158/81
[2022-04-10 13:36] LABS: BUN/Creatinine Ratio 29.3; Calcium 8.5 mg/dL (8.5-10.1); Potassium 5.2 mmol/L (3.5-5.1)
[2022-04-10] MEDS: HEPARIN DRIP/D5W 100UNITS/ML 250 ML IV SCH (16:15)
[2022-04-10 16:39] VITALS: BP 162/78
[2022-04-10] MEDS ORDERED: DOXY-338 PO (18:58)
[2022-04-10] MEDS ORDERED: PRED20TA2 PO (18:58)
[2022-04-10] MEDS ORDERED: AMIO200T4 PO (18:58)
[2022-04-10 20:48] VITALS: BP 143/68
== END 2022-04-10 21:28 | disposition home health service (06) | DRG 189 ==
LOC: ER 18:41 → EDBD 18:41 → TELE 22:04 → TELE-WESTW 04-10 11:58
PROVIDERS: ADMIT Hospitalist; ATTEND Hospitalist
DX: J96.01 Acute respiratory failure with hypoxia (principal); J18.9 Pneumonia, unspecified organism; I13.0 Hypertensive heart and chronic kidney disease with heart failure and stage 1 through stage 4 chronic kidney disease, or unspecified chronic kidney disease; J44.0 Chronic obstructive pulmonary disease with (acute) lower respiratory infection; J44.1 Chronic obstructive pulmonary disease with (acute) exacerbation; J98.11 Atelectasis; N17.9 Acute kidney failure, unspecified; E11.22 Type 2 diabetes mellitus with diabetic chronic kidney disease; I50.9 Heart failure, unspecified; E03.9 Hypothyroidism, unspecified; E66.9 Obesity, unspecified; F32.9 Major depressive disorder, single episode, unspecified; I25.10 Atherosclerotic heart disease of native coronary artery without angina pectoris; Z20.822 Contact with and (suspected) exposure to COVID-19; I48.0 Paroxysmal atrial fibrillation; E78.5 Hyperlipidemia, unspecified; I34.0 Nonrheumatic mitral (valve) insufficiency; N18.30 Chronic kidney disease, stage 3 unspecified; Z80.0 Family history of malignant neoplasm of digestive organs; Z82.49 Family history of ischemic heart disease and other diseases of the circulatory system; Z87.891 Personal history of nicotine dependence; Z88.0 Allergy status to penicillin; Z88.1 Allergy status to other antibiotic agents; Z90.710 Acquired absence of both cervix and uterus; Z68.27 Body mass index [BMI] 27.0-27.9, adult
CPT/HCPCS: 36415; 36600; 71045; 80048; 80053; 80320; 81001; 82805; 82962; 83605; 83735; 83880; 84484; 85025; 85379; 85610; 85730; 87040; 87426; 87804; 93005; 94640; 96365; 96366; 96375; G0378; J1815; J3490

== ENCOUNTER 2022-07-21 19:12 | Emergency (ER) | payer BC, OTHER ==
[~2022-07-21] VITALS: Ht 162.6 cm; Wt 59.0 kg
[~2022-07-21 19:12] MED LIST changes: +AMIO200T4 PO; -DOXY-286 PO; +DOXY-338 PO
[2022-07-21] MEDS ORDERED: ACETAMINOPHEN 325 MG TAB PO ONE (22:45)
[2022-07-22] VITALS: BP 132/55
== END 2022-07-22 00:42 | disposition home or self-care (01) ==
LOC: ER 19:12
DX: S01.01XA Laceration without foreign body of scalp, initial encounter (principal); E11.22 Type 2 diabetes mellitus with diabetic chronic kidney disease; I13.0 Hypertensive heart and chronic kidney disease with heart failure and stage 1 through stage 4 chronic kidney disease, or unspecified chronic kidney disease; N18.9 Chronic kidney disease, unspecified; I50.9 Heart failure, unspecified; E78.5 Hyperlipidemia, unspecified; Z90.49 Acquired absence of other specified parts of digestive tract; Z90.710 Acquired absence of both cervix and uterus; Z88.0 Allergy status to penicillin; Z88.2 Allergy status to sulfonamides; Z88.6 Allergy status to analgesic agent; Z87.891 Personal history of nicotine dependence; V80.018A Animal-rider injured by fall from or being thrown from other animal in noncollision accident, initial encounter; Y93.01 Activity, walking, marching and hiking; Y92.89 Other specified places as the place of occurrence of the external cause; Y99.8 Other external cause status
CPT/HCPCS: 12001; 70450; 93005

== ENCOUNTER 2022-07-29 11:35 | Emergency (ER) | payer BC, OTHER ==
[~2022-07-29] VITALS: Ht 152.4 cm; Wt 63.0 kg
[2022-07-29 12:46] VITALS: BP 134/56
== END 2022-07-29 13:15 | disposition home or self-care (01) ==
LOC: ER 11:35
DX: S01.01XD Laceration without foreign body of scalp, subsequent encounter (principal); I48.91 Unspecified atrial fibrillation; I25.10 Atherosclerotic heart disease of native coronary artery without angina pectoris; E11.22 Type 2 diabetes mellitus with diabetic chronic kidney disease; I13.0 Hypertensive heart and chronic kidney disease with heart failure and stage 1 through stage 4 chronic kidney disease, or unspecified chronic kidney disease; N18.9 Chronic kidney disease, unspecified; I50.9 Heart failure, unspecified; E78.5 Hyperlipidemia, unspecified; F10.20 Alcohol dependence, uncomplicated; Z77.22 Contact with and (suspected) exposure to environmental tobacco smoke (acute) (chronic); Z88.0 Allergy status to penicillin; Z88.1 Allergy status to other antibiotic agents; Z88.2 Allergy status to sulfonamides; Z88.8 Allergy status to other drugs, medicaments and biological substances; Y90.9 Presence of alcohol in blood, level not specified; X58.XXXD Exposure to other specified factors, subsequent encounter

== ENCOUNTER 2023-08-05 08:40 | Observation (INO) | payer OTHER ==
[~2023-08-05 08:40] MED LIST changes: +AMIO200T13 PO; -AMIO200T4 PO; -DOXY-338 PO; +DOXY-447 PO; +GABA-1250 PO; -GABA300C10 PO; +SERT-206 PO; -SERT50TA19 PO
== END 2023-08-05 23:16 | disposition home or self-care (01) ==
LOC: OVERFLOW 08:40
PROVIDERS: ADMIT Internal Medicine; ATTEND Internal Medicine
DX: G45.9 Transient cerebral ischemic attack, unspecified (principal)
CPT/HCPCS: 70450; G0378

== ENCOUNTER 2024-09-16 08:53 | Day surgery (SDC) | payer OTHER ==
[~2024-09-16] VITALS: Ht 152.4 cm; Wt 55.3 kg
[~2024-09-16 08:53] MED LIST changes: -ALEN70TA74 PO; -AMIO200T13 PO; +ATOR20TA50 PO; +B-COCAP34 OR; -BUSP10TA90 PO; +BUSP15TA60 PO; +CALC-245 OR; +CALC1CHW PO; +CARV6.2551 PO; +CHOL20004 PO; +CIPR500T4 PO; +CLON0.2T PO; +CRAN600T OR; +CYAN-17 PO; +CYAN1TAB14 PO; -DOXY-447 PO; +DOXY1CAP58 PO; -METO-6 PO; +MISCTAB OR; +MULT-1228 PO; -MULT-351 PO; +MULT-694 OR; +MULT1PAK PO; +NIFE1TAB30 PO; +OMEG-20 PO; -PRED20TA2 PO; -SERT-206 PO; +TART1200 PO; +[UNRECOGNIZED DRUG - CODE] PO
[2024-09-16] MEDS ORDERED: hydrALAZINE HCL 20 MG/ML VL IV PRN ×2 (11:15→14:00)
[2024-09-16] MEDS ORDERED: ONDANSETRON HCL 4 MG/2 ML VIAL IV ONE (11:15)
[2024-09-16] MEDS ORDERED: METOCLOPRAMIDE HCL 5MG/ml INJ 2ml VIAL IV ONE (11:15)
[2024-09-16] MEDS ORDERED: KETOROLAC TROMETH 30 MG/ML 1ML VIAL ONE (11:34)
[2024-09-16] MEDS ORDERED: PROPOFOL 10 MG/ML 20 ML IV ONE ×2 (11:34→13:35)
[2024-09-16] MEDS ORDERED: LIDOCAINE 1% INJ PF 5ML AMP ONE (11:34)
[2024-09-16] MEDS ORDERED: DexAMETHasone SOD PHOS 10MG/1ML VIAL INJ ONE (11:34)
[2024-09-16] MEDS ORDERED: GLYCOPYRROLATE 0.2 MG/ML 1ML VIAL ONE (11:34)
[2024-09-16] MEDS ORDERED: ONDANSETRON HCL 4 MG/2 ML VIAL ONE (11:34)
[2024-09-16] MEDS ORDERED: KETAMINE 50mg/ML 1ml syringe ONE (11:35)
[2024-09-16] MEDS ORDERED: fentaNYL CITRATE 100 MCG/2 ML VL ONE (11:35)
[2024-09-16] MEDS ORDERED: FERRIC SUBSULFATE TOPICAL SOLN 30 ML BTL ONE (12:35)
[2024-09-16] MEDS ORDERED: IODINE STRONG 5% SOLN 473ML ONE (12:35)
[2024-09-16] MEDS ORDERED: CLINDAMYCIN 600MG IV 50 ML IV ONE (12:54)
[2024-09-16] MEDS: BUPIVACAINE 0.5% P/F INJ 10 ML VIAL ONE (13:29)
[2024-09-16] MEDS: LIDOCAINE W/ EPINEPHRINE 1% 20ML VIAL ONE (13:30)
[2024-09-16 13:50] VITALS: TEMP 97.3; O2SAT 100
--- NOTE | 2024-09-16 13:55 | DVHOP2 ---
Operative Report - 2 Report Details Date: 09/16/24 Preop Diagnosis: Cervical cancer Postop Diagnosis: Same, endophytic Surgeon: Gloria Eckert Anesthesiologist: Charan PARK Anesthesia: General (MAC anesthesia local Marcaine lidocaine 0.25% with epi) Drains: In and out red Tremayne Wu catheter Consent: The patient was informed of the risks and benefits of the procedure. These include but are not limited to complications of anesthesia, postoperative infection, incomplete relief of symptoms, recurrence of symptoms, damage to blood vessels, nerves and tendons, deep venous thrombosis, pulmonary embolism and possible need for repeat surgery in the future. 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 Five ectocervical biopsies performed Procedure Details Procedure Details: Patient taken the operating placed in supine position mac anesthesia performed without difficulty. Weighted speculum placed posteriorly and was immediately evident she had an endophytic cervical cancer essentially having eaten at least a cm of her exocervix away. Five cervical biopsies were taken with LEEP excision. Sent separately for pathology review. Paracervical vaginal tissue mobile potential invasion but not firm to the pelvic sidewall. Urine clear straw-colored. 5 mm LEEP ball fulguration was performed on the cervical biopsies as well as the raw endophytic cancer margins. Good hemostasis achieved. Rectal no mass no evidence of rectal invasion. Monsel's solutions placed as well as Surgicel snow for hemostasis. 8 in of vaginal packing was placed on top of the Monsel's and fibular snow Surgicel with good hemostasis. Ramya called her primary care help her and I discussed that the vaginal packing would be removed postop day 1 that she would continue to have vaginal spotting and then she will follow up 2 weeks for pathology report as well as referral to Radiation Oncology/possible double end trimmer Oncology. Specimen: Cervical biopsy x5 Condition Good Disposition Home (PACU then home follow up [address] Eckert urology [place]) MAIKEL ECKERT DO Sep 16, 2024 13:55
[2024-09-16] MEDS ORDERED: ePHEDrine SULFATE 50 MG/ML AMP IV PRN (14:00)
[2024-09-16] MEDS ORDERED: fentaNYL CITRATE 100 MCG/2 ML VL IV PRN (14:00)
[2024-09-16] MEDS ORDERED: NALOXONE HCL 0.4 MG/ML VIAL IV PRN (14:00)
[2024-09-16] MEDS ORDERED: FLUMAZENIL 0.1 MG/ML INJ 10ML MDV IV PRN (14:00)
[2024-09-16] MEDS ORDERED: ONDANSETRON HCL 4 MG/2 ML VIAL IV PRN (14:00)
[2024-09-16] MEDS: HYDROmorphone HCL 2 MG/ML VL/or syr IV PRN ×2 (14:05→14:10)
[2024-09-16 14:30] VITALS: BP 124/74; PULSE 66; RESP 12; O2SAT 99
== END 2024-09-16 14:25 | disposition home or self-care (01) ==
LOC: SUR 08:53
PROVIDERS: ATTEND Obstetrics & Gynecology
DX: R87.613 High grade squamous intraepithelial lesion on cytologic smear of cervix (HGSIL) (principal); C53.1 Malignant neoplasm of exocervix; I50.9 Heart failure, unspecified; F32.A Depression, unspecified; F41.9 Anxiety disorder, unspecified; Z79.899 Other long term (current) drug therapy; Z90.710 Acquired absence of both cervix and uterus; Z98.890 Other specified postprocedural states; Z88.0 Allergy status to penicillin; Z88.2 Allergy status to sulfonamides; Z87.891 Personal history of nicotine dependence; Z81.1 Family history of alcohol abuse and dependence; Z82.49 Family history of ischemic heart disease and other diseases of the circulatory system; Z80.0 Family history of malignant neoplasm of digestive organs
CPT/HCPCS: 57522; 86850; 86900; 86901; 88305; 88342; J1100; J1171; J2405; J2704; J3490; J1885